=== PATIENT | female | born 1940 | race Caucasian/White ===

== ENCOUNTER 2023-02-06 14:06 | Observation (INO) ==
--- NOTE | 2023-02-06 15:17 | XRay Report ---
XR chest 1V portable CLINICAL HISTORY: Chest pain, nonspecific COMPARISON STUDY: Chest radiograph April 15, 2022. FINDINGS: Lung volumes are normal. Lungs are clear. There is no pneumothorax or pleural effusion. Car diac size is stable. Mediastinal contours are normal. There is no evidence for pulmonary edema. IMPRESSION: No acute cardiopulmonary findings. No change in appearance of the chest. ACT 112: Negative or not required by law. Electronically signed by: Elian Baer M.D. 02/06/2023 3:16 PM
[2023-02-06 15:28] LABS: Hematocrit (blood only) 40.6 % (37.0-47.0); Hemoglobin 13.5 g/dl (12.0-16.0); Mean Corpuscular Hemoglobin 30.7 pg (25.0-34.0); Mean Corpuscular Hgb Conc 33.3 g/dL (32.0-36.0); Mean Corpuscular Volume 92.3 fL (80.0-100.0); Mean Platelet Volume 9.1 fL (9.4-12.4); Platelet Count 231 K/uL (130-400); RDW Coefficient of Variation 14.1 % (11.5-14.5); RDW Standard Deviation 47.9 fL (36.4-46.3); White Blood Count 22.86 K/ul (4.8-10.8)
[2023-02-06] MEDS ORDERED: ONDANSETRON INJ 2 MG/ML 2 ML VIAL IV STA (15:37)
[2023-02-06 15:46] LABS: BUN Creatinine Ratio 18.3 (10-20); Calcium 8.9 mg/dl (8.6-10.3); Creatinine Clr Calc Pharmacy 64.6 ml/min; Est GFR (African American) 91.9 ml/min; Est GFR (Non-African American) 79.3 ml/min; Potassium 3.6 mmol/L (3.5-5.1)
[2023-02-06 15:53] LABS: Troponin I High Sensitivity 2.5 pg/ml (0-14)
--- NOTE | 2023-02-06 16:14 | Emergency Department Note ---
History of Present Illness General Chief complaint: Hypertension Time Seen by Provider: 02/06/23 14:28 History of Present Illness Provider complaint: Lightheaded high blood pressure Onset (ago): hour(s) (2.5) Location: head 82-year-old female with history of CLL presents emergency department for lightheadedness and high blood pressure. Patient states at noon today she was watching TV and she got up to eat lunch when she suddenly became very lightheaded and felt nauseous. She states she took her blood pressure and noticed it was elevated with a systolic blood pressure greater than 170. She reports a mild headache. No chest pain or difficulty breathing. No abdominal pain. No vomiting or diarrhea. Home Medications Medication Instructions Recorded Confirmed Type cranberry extract 500 mg capsule 500 mg PO BID 09/13/20 02/04/23 History (Cranberry Concentrate) multivitamin (Daily Multi-Vitamin 1 tab PO DAILY 09/13/20 02/04/23 History tablet) polyethylene glycol 3350 17 17 g PO DAILY 09/13/20 02/04/23 History gram/dose oral powder (Miralax) calcium carb,cit ER 600 mg-vit D3 2 tab PO DAILY 03/26/21 02/04/23 History 12.5 mcg (500 unit) tablet,ext.rel (Citracal-D3 Slow Release) green tea extract 500 mg capsule 750 mg PO QID 03/26/21 02/04/23 History oxyquinoline 0.025 %-sodium lauryl 1 ea vaginal PRN #113.4 grams 02/19/22 02/04/23 Rx sulfate 0.01 % vaginal gel (Trimo-Espinal Jelly) aspirin 81 mg capsule 81 mg PO DAILY 05/06/22 02/04/23 History rosuvastatin 5 mg tablet (Crestor) 5 mg PO DAILY #90 tabs 06/23/22 02/04/23 Rx conjugated estrogens 0.625 mg/gram 0.625 mg vaginal .COMPLEX #30 grams 07/10/22 02/04/23 Rx vaginal cream (Premarin) azelastine 137 mcg (0.1 %) nasal 2 spray intranasal BID PRN allergy 08/07/22 02/04/23 Rx spray aerosol symptoms #90 mL esomeprazole magnesium 20 mg 20 mg PO DAILY #90 caps 10/12/22 02/04/23 Rx capsule,delayed release (Nexium) levothyroxine 100 mcg tablet 100 mcg PO DAILY #90 tabs 11/18/22 02/04/23 Rx diclofenac sodium 1 % topical gel 2 g topical QID PRN pain #100 grams 01/14/23 02/04/23 Rx lisinopril 30 mg tablet 30 mg PO DAILY #90 tabs 01/22/23 02/04/23 Rx magnesium 200 mg tablet 200 mg PO DAILY 02/04/23 02/04/23 History pregabalin 50 mg capsule (Lyrica) 50 mg PO BID #60 caps 02/04/23 02/04/23 Rx diltiazem HCl 120 mg 120 mg PO DAILY #30 caps 02/05/23 Rx capsule,extended release 24 hr Allergies Allergy/AdvReac Type Severity Reaction Status Date / Time amlodipine AdvReac Intermediate swollen Verified 01/21/23 11:46 ankles doxepin AdvReac Intermediate Verified 01/21/23 11:46 nortriptyline AdvReac Intermediate Nausea and Verified 02/04/23 08:11 dizzy feeling Opioids-Methadone and Related AdvReac Intermediate Verified 01/21/23 11:46 cymbalta AdvReac Severe Uncoded 01/21/23 11:46 amlodipine AdvReac Mild edema Uncoded 01/21/23 11:46 gabapentin AdvReac Mild sedation Uncoded 01/21/23 11:46 Past Med/Surg History Medical History B12 deficiency Benign breast cyst in female Benign thyroid cyst Bilateral cataracts 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 Luis [facility] History of basal cell carcinoma (BCC) Hypothyroid Schwannoma Thyroid nodule Surgical History H/O abdominal hysterectomy H/O colonoscopy No further tests recommended H/O parathyroidectomy History of right hip replacement Family History Mother , age 79 Bipolar disorder Father , age 72 Hypertension Alcohol abuse Sister Hypertension Melanoma Grandfather (Paternal) Lung cancer Other Dementia Myocardial infarction Denies family history of Ovarian cancer Prostate cancer Diabetes Breast cancer Colorectal cancer Stroke Social History Smoking Status: Never smoker Second Hand Exposure: No; Do You Dip or Chew Tobacco: No; Hx Alcohol Use: No Hx Substance Use: No Preferred Language: Danish Communication Ability: Effective Visual Impairment: Limited Hearing Ability: Normal marital status: Current Living Situation: Spouse current occupational status: retired current occupation: retired [employer] RN, 2000 How many Children do You have: 2 Feels Safe at Home: Yes Childhood Exposure to Second-Hand Smoke: Yes Diet: regular caffeine: Yes (3-4 times a day) Dental Care, Regularly: Yes Physical Activity Frequency: 5-6 Times per Week Physical Activity Frequency Comment: walks Seatbelt Use: always Sunscreen Use: Yes Do you think of yourself as: straight/heterosexual Physical Exam Vital Signs Vital Signs - 24 hr 02/06/23 14:14 02/06/23 14:19 02/06/23 15:10 Temperature 36.4 C L Temperature Source Oral Pulse Rate 67 71 69 Pulse Rate [Apical] Pulse Rhythm Regular Respiratory Rate 20 17 Respiratory Effort / Characteristics Respiratory Depth Respiratory Pattern Blood Pressure 152/70 H Blood Pressure [Right Arm] Blood Pressure Mean 97 Blood Pressure Mean [Right Arm] Pulse Oximetry 98 100 Oxygen Delivery Method Room Air Room Air Oxygen Flow Rate Sepsis Recent Fever Within 48 Hours No Sepsis New/Unexplained Change in Mental Status N/A Sepsis Action Taken by Nursing No Action Required 02/06/23 15:11 02/06/23 16:16 02/06/23 16:16 Temperature Temperature Source Pulse Rate Pulse Rate [Apical] 65 70 Pulse Rhythm Respiratory Rate 17 18 Respiratory Effort / Characteristics Non-Labored Respiratory Depth Normal Respiratory Pattern Regular Blood Pressure Blood Pressure [Right Arm] 168/80 H Blood Pressure Mean Blood Pressure Mean [Right Arm] 109 Pulse Oximetry 86 L 98 Oxygen Delivery Method Room Air Room Air Nasal Cannula Oxygen Flow Rate 2 Sepsis Recent Fever Within 48 Hours Sepsis New/Unexplained Change in Mental Status Sepsis Action Taken by Nursing Physical Exam GENERAL: She is oriented to person, place, and time. She appears well-developed and well-nourished. HENT: Exam performed. -Head: Normocephalic and atraumatic. -Right Ear: External ear normal. No mastoid erythema -Left Ear: External ear normal. No mastoid erythema -Mouth/Throat: The oropharynx is clear and moist. No trismus in the jaw. No dental abscesses or uvula swelling. No oropharyngeal exudate or tonsillar abs cesses. EYES: Conjunctivae and EOM are normal. Pupils are equal, round, and reactive to light. Right eye exhibits no discharge. Left eye exhibits no discharge. No scleral icterus. NECK: Normal range of motion. Neck supple. No JVD present. No tracheal deviation and normal range of motion present. CV: Normal rate, regular rhythm, normal heart sounds and intact distal pulses. There is no peripheral edema. Palpable radial pulses bue. PULM/CHEST: Effort normal and breath sounds normal. No respiratory distress. No stridor. She has no wheezes. She has no rales. ABD: The abdomen is soft.There is no tenderness. There is no rebound, no guarding NEURO: She is alert and oriented to person, place, and time. She has normal strength. No cranial nerve deficit or sensory deficit. Coordination and gait n ormal. GCS eye subscore is 4. GCS verbal subscore is 5. GCS motor subscore is 6. Cerebellar tests wnl. SKIN: Skin is warm and dry. She is not diaphoretic. Course Course 1428: The patient was evaluated in room B6. A complete history and physical exam was performed Cardiac monitoring: An order was placed for continuous cardiac monitoring. The monitor shows a rate of 70 with sinus rhythm interpreted by ut 1620: Patient became hypoxic on room air and responded to supplemental oxygen via nasal cannula. And CTA of the chest also. 1720: Vital signs stable supplemental oxygen via nasal cannula. Labs are within normal limits. CT of the head within normal limits. CTA of the chest showed no pulmonary emboli but did show groundglass opacities with mosaic attenuation within the lungs which may reflect air trapping or infectious process. Discussed the case with pulmonology on-call Dr. Bingham who stated to obtain a BioFire swab and then to treat with antibiotics for community-acquired pneumonia. Patient be given Rocephin and azithromycin. [facility] hospitalist team Dr. Belle and Aida FUNEZ are aware for the admission. Administered Medications Discontinued Medications Ioversol (Optiray 320 500ml) 116 ml IV ONCE ONE Stop: 02/06/23 16:47 Last Admin: 02/06/23 16:47 Dose: 116 ml Documented By: RHIANNA Ondansetron HCl (Ondansetron Inj 2 Mg/Ml 2 Ml Vial) 4 mg IV NOW STA Stop: 02/06/23 15:38 Last Admin: 02/06/23 15:42 Dose: 4 mg Documented By: Medical Decision Making Laboratory Data Attestation: I reviewed the patient's lab results. 02/06/23 15:10 02/06/23 15:10 Lab Results 02/06/23 02/06/23 02/06/23 Range/Units 14:43 15:10 15:10 WBC 22.86 H (4.8-10.8) K/ul RBC 4.40 (4.20-5.40) M/uL Hgb 13.5 (12.0-16.0) g/dl Hct 40.6 (37.0-47.0) % MCV 92.3 (80.0-100.0) fL MCH 30.7 (25.0-34.0) pg MCHC 33.3 (32.0-36.0) g/dL RDW Std Deviation 47.9 H (36.4-46.3) fL RDW Coeff of Nancy 14.1 (11.5-14.5) % Plt Count 231 (130-400) K/uL MPV 9.1 L (9.4-12.4) fL Immature Gran % (Auto) 0.2 % Neut % (Auto) 29.8 % Lymph % (Auto) 65.9 % [place] % (Auto) 3.5 % Eos % (Auto) 0.3 % Baso % (Auto) 0.3 % Neut # (Auto) 6.82 H (1.40-6.50) K/uL Lymph # (Auto) 15.07 H (1.2-3.4) K/uL [place] # (Auto) 0.79 H (0.11-0.59) K/uL Eos # (Auto) 0.07 (0-0.50) K/uL Baso # (Auto) 0.06 (0-0.2) K/uL Immature Gran # (Auto) 0.05 (0.01-0.20) K/uL Sodium 137 (136-145) mmol/L Potassium 3.6 (3.5-5.1) mmol/L Chloride 102 (98-107) mmol/L Carbon Dioxide 27 (21-32) mmol/L Anion Gap 8 (3-11) BUN 13 (6-23) mg/dl Creatinine 0.71 (0.6-1.2) mg/dl Est Cr Clr Drug Dosing 64.6 ml/min Est GFR ( Amer) 91.9 ml/min Est GFR (Non-Af Amer) 79.3 ml/min BUN/Creatinine Ratio 18.3 (10-20) Glucose 105 H (70-99(Fasting)) mg/dl POC Glucose 106 H (70-99) mg/dl Calcium 8.9 (8.6-10.3) mg/dl Troponin I High Sens 2.5 (0-14) pg/ml SARS-CoV-2, RNA, NAAT (NEGATIVE) 02/06/23 Range/Units 16:25 WBC (4.8-10.8) K/ul RBC (4.20-5.40) M/uL Hgb (12.0-16.0) g/dl Hct (37.0-47.0) % MCV (80.0-100.0) fL MCH (25.0-34.0) pg MCHC (32.0-36.0) g/dL RDW Std Deviation (36.4-46.3) fL RDW Coeff of Nancy (11.5-14.5) % Plt Count (130-400) K/uL MPV (9.4-12.4) fL Immature Gran % (Auto) % Neut % (Auto) % Lymph % (Auto) % [place] % (Auto) % Eos % (Auto) % Baso % (Auto) % Neut # (Auto) (1.40-6.50) K/uL Lymph # (Auto) (1.2-3.4) K/uL [place] # (Auto) (0.11-0.59) K/uL Eos # (Auto) (0-0.50) K/uL Baso # (Auto) (0-0.2) K/uL Immature Gran # (Auto) (0.01-0.20) K/uL Sodium (136-145) mmol/L Potassium (3.5-5.1) mmol/L Chloride (98-107) mmol/L Carbon Dioxide (21-32) mmol/L Anion Gap (3-11) BUN (6-23) mg/dl Creatinine (0.6-1.2) mg/dl Est Cr Clr Drug Dosing ml/min Est GFR ( Amer) ml/min Est GFR (Non-Af Amer) ml/min BUN/Creatinine Ratio (10-20) Glucose (70-99(Fasting)) mg/dl POC Glucose (70-99) mg/dl Calcium (8.6-10.3) mg/dl Troponin I High Sens (0-14) pg/ml SARS-CoV-2, RNA, NAAT NEGATIVE (NEGATIVE) Imaging Data My Impression: Chest x-ray negative. Airway clear. No pneumothorax. No consolidation. No cardiomegaly or cephalization.. No free air under the diaphragm. No fractures of the skeletal structures. Radiologist's Impression: Chest X-Ray 02/06/23 14:41 XR chest 1V portable CLINICAL HISTORY: Chest pain, nonspecific COMPARISON STUDY: Chest radiograph April 15, 2022. FINDINGS: Lung volumes are normal. Lungs are clear. There is no pneumothorax or pleural effusion. Cardiac size is stable. Mediastinal contours are normal. There is no evidence for pulmonary edema. IMPRESSION: No acute cardiopulmonary findings. No change in appearance of the chest. ACT 112: Negative or not required by law. Electronically signed by: Elian Baer M.D. 02/06/2023 3:[address] 02/06/23 14:42 CT OF THE HEAD WITHOUT CONTRAST CLINICAL HISTORY: cui dizziness onset 1200 COMPARISON STUDY: Head CT and CTA of the head April 15, 2022. CT DOSE: 800.63 mGy.cm TECHNIQUE: Helical axial images of the head were obtained without IV contrast. Automated exposure control was utilized for the study. A dose lowering technique was utilized adhering to the principles of ALARA. FINDINGS: No acute intracranial hemorrhage, midline shift or mass effect is present. A 2.8 cm extra-axial right posterior parafalcine mass is noted. This is likely slightly increased in size since head CT of April 15, 2022. The ventricular system is unremarkable. The basal cisterns are patent. No extra- axial collections are present. There are no findings to suggest acute dural sinus thrombosis or acute territorial infarct. No significant calvarial abnormalities are present. Visualized portions of the sinuses and mastoid air cells are clear. IMPRESSION: 1. No acute intracranial findings. 2. 2.8 cm extra-axial right posterior parafalcine mass, likely slightly increased in size since prior head CT. This favors a meningioma. ACT 112: Negative or not required by law. Electronically signed by: Elian Baer M.D. 02/06/2023 4:30 PM Chest CTA 02/06/23 16:20 CT ANGIOGRAPHY OF THE CHEST, PULMONARY EMBOLUS PROTOCOL CLINICAL HISTORY: Shortness of breath. Evaluate for pulmonary embolus. COMPARISON STUDY: Chest radiographs April 15, 2022 and February 06, 2023 at 2:57 PM TECHNIQUE: Following IV administration of 116 mL of Optiray, helical axial images of the chest were obtained utilizing the pulmonary embolus protocol. Maximal intensity projections and sagittal and coronal reformats were viewed on an independent 3D workstation. IV contrast was administered without complicati on. Automated exposure control was utilized for the study. A dose lowering technique was utilized adhering to the principles of ALARA. CT DOSE: 479.49 mGy.cm FINDINGS: No pulmonary emboli are identified. There is no thoracic aortic dissection. Cardiomegaly is noted. There is no pericardial effusion. A small hiatal hernia is noted. The esophagus is moderately dilated. There is an air- fluid level within the esophagus. No pneumothorax or pleural effusion is noted. There are groundglass opacities with mosaic attenuation within the lungs. There is no thoracic lymphadenopathy. A lobulated water attenuation 2.6 and a right hepatic lobe lesion favors a cyst. IMPRESSION: 1. No pulmonary emboli identified. 2. Ground glass opacities with mosaic attenuation within the lungs. Findings may reflect air trapping. An infectious process could appear similar although is considered less likely. 3. Moderately dilated esophagus. Small hiatal hernia. ACT 112: Negative or not required by law. Electronically signed by: Elian Baer M.D. 02/06/2023 5:09 PM ECG Data Attestation: I personally reviewed and interpreted this ECG as follows: Rate (beats per minute): 69 Rhythm: + normal sinus ECG Intervals/blocks: + Normal QRS, + Normal MA and + Normal QT-c ECG ST segments: + Normal ST segments [facility] Narrative 1428: The patient was evaluated in room B6. A complete history and physical exam was performed Cardiac monitoring: An order was placed for continuous cardiac monitoring. The monitor shows a rate of 70 with sinus rhythm interpreted by ut 1620: Patient became hypoxic on room air and responded to supplemental oxygen via nasal cannula. And CTA of the chest also. 1720: Vital signs stable supplemental oxygen via nasal cannula. Labs are within normal limits. CT of the head within normal limits. CTA of the chest showed no pulmonary emboli but did show groundglass opacities with mosaic attenuation within the lungs which may reflect air trapping or infectious process. Discussed the case with pulmonology on-call Dr. Bingham who stated to obtain a BioFire swab and then to treat with antibiotics for community-acquired pneumonia. Patient be given Rocephin and azithromycin. [facility] hospitalist team Dr. Belle and Aida FUNEZ are aware for the admission. Impression & Plan Hypoxia, Pneumonia Discharge Plan Visit Data Chief Complaint: Hypertension ED Provider: Ramana Crooks Discharge Problem: Hypoxia, Pneumonia Patient Disposition: Admitted As Inpatient Forms Stand Alone Forms: My [facility] Prescriptions Prescriptions: No Action Trimo-Espinal Jelly 0.025-0.01 % gel 1 ea vaginal PRN Qty: 113.4 2RF rosuvastatin [Crestor] 5 mg tablet 5 mg PO DAILY Qty: 90 3RF Premarin 0.625 mg/gram cream 0.625 mg vaginal .COMPLEX Qty: 30 3RF Rx Instructions: Apply pea sized amount 1-2 times weekly. azelastine 137 mcg (0.1 %) aerosol,spray 2 spray intranasal BID PRN (Reason: allergy symptoms) Qty: 90 3RF Rx Instructions: administer into each nostril esomeprazole magnesium [Nexium] 20 mg capsule,delayed release(DR/EC) 20 mg PO DAILY Qty: 90 3RF levothyroxine 100 mcg tablet 100 mcg PO DAILY Qty: 90 3RF diclofenac sodium 1 % gel 2 g topical QID PRN (Reason: pain) Qty: 100 3RF lisinopril 30 mg tablet 30 mg PO DAILY Qty: 90 0RF diltiazem HCl 120 mg capsule,extended release 24hr 120 mg PO DAILY Qty: 30 2RF aspirin 81 mg capsule 81 mg PO DAILY polyethylene glycol 3350 [Miralax] 17 gram/dose powder 17 g PO DAILY multivitamin [Daily Multi-Vitamin] Tablet 1 tab PO DAILY cranberry extract [Cranberry Concentrate] 500 mg capsule 500 mg PO BID Rx Instructions: administer with meals calcium carb and citrate-vitD3 [Citracal-D3 Slow Release] 600 mg-12.5 mcg (500 unit) tablet extended release 2 tab PO DAILY green tea extract 500 mg capsule 750 mg PO QID magnesium 200 mg tablet 200 mg PO DAILY pregabalin [Lyrica] 50 mg capsule 50 mg PO BID Qty: 60 5RF Referrals Referrals: Med Hyatt DO [Primary Care Provider] -
[2023-02-06 16:21] LABS: Basophils # (auto) 0.06 K/uL (0-0.2); Basophils % (auto) 0.3 %; Eosinophils # (auto) 0.07 K/uL (0-0.50); Eosinophils % (auto) 0.3 %; Immature Granulocytes # (auto) 0.05 K/uL (0.01-0.20); Immature Granulocytes % (auto) 0.2 %; Lymphocytes # (auto) 15.07 K/uL (1.2-3.4); Lymphocytes % (auto) 65.9 %; Monocytes # (auto) 0.79 K/uL (0.11-0.59); Monocytes % (auto) 3.5 %; Neutrophils # (auto) 6.82 K/uL (1.40-6.50); Neutrophils % (auto) 29.8 %
--- NOTE | 2023-02-06 16:32 | CT Scan Report ---
CT OF THE HEAD WITHOUT CONTRAST CLINICAL HISTORY: cui dizziness onset 1200 COMPARISON STUDY: Head CT and CTA of the head April 15, 2022. CT DOSE: 800.63 mGy.cm TECHNIQUE: Helical axial images of the head were obtained without IV contrast. Automated exposure con trol was utilized for the study. A dose lowering technique was utilized adhering to the principles o f ALARA. FINDINGS: No acute intracranial hemorrhage, midline shift or mass effect is present. A 2.8 cm extra-a xial right posterior parafalcine mass is noted. This is likely slightly increased in size since head CT of April 15, 2022. The ventricular system is unremarkable. The basal cisterns are patent. No extr a-axial collections are present. There are no findings to suggest acute dural sinus thrombosis or acu te territorial infarct. No significant calvarial abnormalities are present. Visualized portions of th e sinuses and mastoid air cells are clear. IMPRESSION: 1. No acute intracranial findings. 2. 2.8 cm extra-axial right posterior parafalcine mass, likely slightly increased in size since prior head CT. This favors a meningioma. ACT 112: Negative or not required by law. Electronically signed by: Elian Baer M.D. 02/06/2023 4:30 PM
[2023-02-06] MEDS ORDERED: OPTIRAY 320 500ml IV ONE (16:46)
--- NOTE | 2023-02-06 17:11 | CT Scan Report ---
CT ANGIOGRAPHY OF THE CHEST, PULMONARY EMBOLUS PROTOCOL CLINICAL HISTORY: Shortness of breath. Evaluate for pulmonary embolus. COMPARISON STUDY: Chest radiographs April 15, 2022 and February 06, 2023 at 2:57 PM TECHNIQUE: Following IV administration of 116 mL of Optiray, helical axial images of the chest were o btained utilizing the pulmonary embolus protocol. Maximal intensity projections and sagittal and cor onal reformats were viewed on an independent 3D workstation. IV contrast was administered without co mplication. Automated exposure control was utilized for the study. A dose lowering technique was ut ilized adhering to the principles of ALARA. CT DOSE: 479.49 mGy.cm FINDINGS: No pulmonary emboli are identified. There is no thoracic aortic dissection. Cardiomegaly i s noted. There is no pericardial effusion. A small hiatal hernia is noted. The esophagus is moderatel y dilated. There is an air-fluid level within the esophagus. No pneumothorax or pleural effusion is n oted. There are groundglass opacities with mosaic attenuation within the lungs. There is no thoracic lymphadenopathy. A lobulated water attenuation 2.6 and a right hepatic lobe lesion favors a cyst. IMPRESSION: 1. No pulmonary emboli identified. 2. Ground glass opacities with mosaic attenuation within the lungs. Findings may reflect air trapping . An infectious process could appear similar although is considered less likely. 3. Moderately dilated esophagus. Small hiatal hernia. ACT 112: Negative or not required by law. Electronically signed by: Elian Baer M.D. 02/06/2023 5:09 PM
[2023-02-06] MEDS ORDERED: cefTRIAXone SODIUM 1,000 MG in DEXTROSE 5% AD-VAN 50 ML IV STA (17:15)
[2023-02-06] MEDS ORDERED: AZITHROMYCIN 250 MG TAB PO ONE (17:15)
--- NOTE | 2023-02-06 17:40 | History & Physical Report ---
Date of Service February 06, 2023 Assessment & Plan (1) Hypoxia: Plan: Acute/stable - moderate to high risk - Admit to med/tele - Regular diet - Opacities on CT not likely to represent PNA in absence of subjective symptoms and no other supporting signs (lack of fever/tachycardia/worsening leukocytosis) - Received dose of Zithromax and Rocephin in ED - Procal has been ordered/pending - For now, defer additional antibiotics - Respiratory biofire ordered/pending - symptoms suspicious more with for a viral syndrome - Maintain supplemental O2 with goal pulse ox >90%, wean off as able (2) Hypertensive urgency: Plan: Acute on chronic/unstable - moderate to high risk - BP has been poorly controlled at home - Resume Lisinopril 30mg daily + Diltiazem CD 120mg daily - Add Hydralazine 10mg IV q4h prn sbp>170 or dbp>100 - May need to consider secondary htn w/u if accelerated BPs persist (3) CLL (chronic lymphocytic leukemia): Plan: Chronic/stable - low risk - Monitored by CCP, Dr. Carreno - CBC reviewed, leukocytosis is chronic and at baseline, H&H stable, no left shift - Not on any definitive treatment at this time (4) GERD (gastroesophageal reflux disease): Plan: Chronic/stable - low risk - Continue PPI therapy Plan CMP reviewed, no electrolyte derangements or renal failure noted. DVT ppx has been ordered with Lovenox 40mg daily. AM labs have been ordered. Above plan has been d/w Dr. Etienne who has also seen and evaluated this patient and agrees with aforementioned. Further orders will be implemented as hospitalization warrants. History of Present Illness Chief Complaint: generalized malaise/elevated BP Primary Care Provider: Med Hyatt DO Padmini Rushing is an 82 yo F with a pmhx CLL, peripheral neuropathy, meningioma, GERD, hypothyroidism who presents to the ER today c/o elevated BP and generalized malaise over the last few days. Patient states that she has been dealing with uncontrolled blood pressure issues since around . She was previously being treated for her neuropathic pain with Doxepin and felt that it was causing her BP to be elevated and subsequently stopped taking it. She has since been switched to Lyrica which she started for the first time last night. Due to her intermittent elevated BP, her PCP increased her Lisinopril to 30mg daily and also started her on a calcium channel fidel taking her first dose last evening. Today, she was feeling fatigued and more sleepy than usual. She took her BP overnight and again this AM and it was controlled at 117 and 120 respectively. Around lunchtime, she got up to make herself lunch and felt nauseous, she took her BP and it was 180 systolic. She attempted to contact her PCP but was unable to connect with him. Subsequently, she called 911 and was transported to the ER for evaluation. Here, she was noted to be afebrile. She denies cough, congestion, fever, chest pain, or dyspnea. Her BP has been with a highest of 160s systolic. Her WBC count is chronically elevated d/t her CLL and is not beyond her baseline. A transient dip in her oxygen to 86% on room air was noted and she was placed on supplemental O2. CXR was negative. CTA chest was performed showing ground glass opacities with mosaic attenuation within the lungs likely d/t air trapping as opposed to an infectious process. Respiratory biofire has been ordered and is pending. She was treated with a dose of Zithromax and Rocephin and referred to the hospitalist for admission. Allergies Allergy/AdvReac Type Severity Reaction Status Date / Time amlodipine AdvReac Intermediate swollen Verified 02/06/23 17:37 ankles doxepin AdvReac Intermediate Unknown Verified 02/06/23 17:37 nortriptyline AdvReac Intermediate Nausea and Verified 02/04/23 08:11 dizzy feeling Opioids-Methadone and Related AdvReac Intermediate Unknown Verified 02/06/23 17:37 duloxetine [From Cymbalta] AdvReac Mild Unknown Verified 02/06/23 21:38 gabapentin AdvReac Mild SEDATION Verified 02/06/23 21:38 Home Medications Medication Instructions Recorded Confirmed Type cranberry extract 500 mg capsule 500 mg PO BID 09/13/20 02/06/23 History (Cranberry Concentrate) multivitamin (Daily Multi-Vitamin 1 tab PO DAILY 09/13/20 02/06/23 History tablet) polyethylene glycol 3350 17 17 g PO DAILY 09/13/20 02/06/23 History gram/dose oral powder (Miralax) calcium carb,cit ER 600 mg-vit D3 2 tab PO DAILY 03/26/21 02/06/23 History 12.5 mcg (500 unit) tablet,ext.rel (Citracal-D3 Slow Release) green tea extract 500 mg capsule 750 mg PO QID 03/26/21 02/06/23 History oxyquinoline 0.025 %-sodium lauryl 1 ea vaginal PRN #113.4 grams 02/19/22 02/06/23 Rx sulfate 0.01 % vaginal gel (Trimo-Espinal Jelly) aspirin 81 mg capsule 81 mg PO DAILY 05/06/22 02/06/23 History rosuvastatin 5 mg tablet (Crestor) 5 mg PO DAILY #90 tabs 06/23/22 02/06/23 Rx conjugated estrogens 0.625 mg/gram 0.625 mg vaginal .COMPLEX #30 grams 07/10/22 02/06/23 Rx vaginal cream (Premarin) azelastine 137 mcg (0.1 %) nasal 2 spray intranasal BID PRN allergy 08/07/22 02/06/23 Rx spray aerosol symptoms #90 mL esomeprazole magnesium 20 mg 20 mg PO DAILY #90 caps 10/12/22 02/06/23 Rx capsule,delayed release (Nexium) levothyroxine 100 mcg tablet 100 mcg PO DAILY #90 tabs 11/18/22 02/06/23 Rx diclofenac sodium 1 % topical gel 2 g topical QID PRN pain #100 grams 01/14/23 02/06/23 Rx lisinopril 30 mg tablet 30 mg PO DAILY #90 tabs 01/22/23 02/06/23 Rx magnesium 200 mg tablet 200 mg PO DAILY 02/04/23 02/06/23 History pregabalin 50 mg capsule (Lyrica) 50 mg PO BID #60 caps 02/04/23 02/06/23 Rx diltiazem HCl 120 mg 120 mg PO DAILY #30 caps 02/05/23 02/06/23 Rx capsule,extended release 24 hr erythromycin 5 mg/gram (0.5 %) eye 0.5 inch OPB HS 02/06/23 02/06/23 History ointment [id number] 3.5 1 drp OPR .TAPER DIRECTED 02/06/23 02/06/23 History mg/mL-10,000 unit/mL-0.1% eye drops Past Med/Surg History Medical History B12 deficiency Benign breast cyst in female Benign thyroid cyst Bilateral cataracts 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 [place] History of basal cell carcinoma (BCC) Hypothyroid Schwannoma Thyroid nodule Surgical History H/O abdominal hysterectomy H/O colonoscopy No further tests recommended H/O parathyroidectomy History of right hip replacement Family History Mother , age 79 Bipolar disorder Father , age 72 Hypertension Alcohol abuse Sister Hypertension Melanoma Grandfather (Paternal) Lung cancer Other Dementia Myocardial infarction Denies family history of Ovarian cancer Prostate cancer Diabetes Breast cancer Colorectal cancer Stroke Social History Smoking Status: Never smoker Second Hand Exposure: No; Do You Dip or Chew Tobacco: No; Hx Alcohol Use: No Hx Substance Use: No Preferred Language: Indonesian Communication Ability: Effective Visual Impairment: Limited Hearing Ability: Normal Nurse Midwife Required: No Beliefs That Will Affect Care: None marital status: Current Living Situation: Spouse current occupational status: retired current occupation: retired hospital RN, 2000 How many Children do You have: 2 Other Information That Helps Us Care for You: No Feels Safe at Home: Yes Safety Concerns: Feels Safe At This Time Childhood Exposure to Second-Hand Smoke: Yes Diet: regular caffeine: Yes (3-4 times a day) Dental Care, Regularly: Yes Physical Activity Frequency: 5-6 Times per Week Physical Activity Frequency Comment: walks Seatbelt Use: always Sunscreen Use: Yes Do you think of yourself as: straight/heterosexual Assistive Devices: Glasses and Other Assistive Devices Comment: stair lift Physical Exam Physical Exam: GENERAL: 82 yo well-developed, well-nourished elderly F. AAOx4. NAD. EYES: conjunctiva injection of R eye LUNGS: Clear to auscultation bilaterally w/o W/R/R. CARDIOVASCULAR: Regular rate and rhythm. ABDOMEN: Soft, non-tender and non-distended. BS normoactive x 4 quad. EXTREMITIES: No edema. Non-tender. Peripheral pulses +2/4. Results & Data Results & Data Vital Signs (Past 12 Hours) Vital Signs Temp Pulse Pulse Resp BP BP Pulse Ox 02/06/23 16:16 70 18 168/80 H 98 02/06/23 16:16 65 17 86 L 02/06/23 15:11 02/06/23 15:10 69 17 100 02/06/23 14:19 36.4 C L 71 20 152/70 H 98 02/06/23 14:14 67 O2 Del Method O2 Flow Rate 02/06/23 16:16 Nasal Cannula 2 02/06/23 16:16 Room Air 02/06/23 15:11 Room Air 02/06/23 15:10 Room Air 02/06/23 14:19 Room Air 02/06/23 14:14 Laboratory Results 02/06/23 15:10 02/06/23 15:10 Diagnostic Findings Chest X-Ray 02/06/23 14:41 XR chest 1V portable CLINICAL HISTORY: Chest pain, nonspecific COMPARISON STUDY: Chest radiograph April 15, 2022. FINDINGS: Lung volumes are normal. Lungs are clear. There is no pneumothorax or pleural effusion. Cardiac size is stable. Mediastinal contours are normal. There is no evidence for pulmonary edema. IMPRESSION: No acute cardiopulmonary findings. No change in appearance of the chest. ACT 112: Negative or not required by law. Electronically signed by: Elian Baer M.D. 02/06/2023 3:[address] 02/06/23 14:42 CT OF THE HEAD WITHOUT CONTRAST CLINICAL HISTORY: cui dizziness onset 1200 COMPARISON STUDY: Head CT and CTA of the head April 15, 2022. CT DOSE: 800.63 mGy.cm TECHNIQUE: Helical axial images of the head were obtained without IV contrast. Automated exposure control was utilized for the study. A dose lowering technique was utilized adhering to the principles of ALARA. FINDINGS: No acute intracranial hemorrhage, midline shift or mass effect is present. A 2.8 cm extra-axial right posterior parafalcine mass is noted. This is likely slightly increased in size since head CT of April 15, 2022. The ventricular system is unremarkable. The basal cisterns are patent. No extra- axial collections are present. There are no findings to suggest acute dural sin us thrombosis or acute territorial infarct. No significant calvarial abnormalities are present. Visualized portions of the sinuses and mastoid air cells are clear. IMPRESSION: 1. No acute intracranial findings. 2. 2.8 cm extra-axial right posterior parafalcine mass, likely slightly increase d in size since prior head CT. This favors a meningioma. ACT 112: Negative or not required by law. Electronically signed by: Elian Baer M.D. 02/06/2023 4:30 PM Chest CTA 02/06/23 16:20 CT ANGIOGRAPHY OF THE CHEST, PULMONARY EMBOLUS PROTOCOL CLINICAL HISTORY: Shortness of breath. Evaluate for pulmonary embolus. COMPARISON STUDY: Chest radiographs April 15, 2022 and February 06, 2023 at 2:57 PM TECHNIQUE: Following IV administration of 116 mL of Optiray, helical axial images of the chest were obtained utilizing the pulmonary embolus protocol. Max imal intensity projections and sagittal and coronal reformats were viewed on an independent 3D workstation. IV contrast was administered without complication. Automated exposure control was utilized for the study. A dose lowering technique was utilized adhering to the principles of ALARA. CT DOSE: 479.49 mGy.cm FINDINGS: No pulmonary emboli are identified. There is no thoracic aortic dis section. Cardiomegaly is noted. There is no pericardial effusion. A small hiatal hernia is noted. The esophagus is moderately dilated. There is an air-fluid level within the esophagus. No pneumothorax or pleural effusion is noted. There are groundglass opacities with mosaic attenuation within the lungs. There is no thoracic lymphadenopathy. A lobulated water attenuation 2.6 and a right hepatic lobe lesion favors a cyst. IMPRESSION: 1. No pulmonary emboli identified. 2. Ground glass opacities with mosaic attenuation within the lungs. Findings may reflect air trapping. An infectious process could appear similar although is considered less likely. 3. Moderately dilated esophagus. Small hiatal hernia. ACT 112: Negative or not required by law. Electronically signed by: Elian Baer M.D. 02/06/2023 5:09 PM Supervising Physician Co-Signing Physician Notes Patient seen and examined, chart reviewed, case discussed with Sarah Beth Bowman PA-C and I agree with the assessment and plan as above except as otherwise noted above. All labs and images reviewed Patient seen and examined, chart reviewed, case discussed with Sarah Beth Bowman PA-C and I agree with the assessment and plan as above except as otherwise noted. Labs and images reviewed Padmini Rushing is an 82-year-old female with a [facility] medical history of CLL presented to the ER with lightheadedness and hypertension. Home blood pressure was greater than 170, she had some lightheadedness and nausea. While in the ER she was briefly hypoxic to the 80s and put on 2 L nasal cannula with rise in O2 sat to 98%. Lungs with basilar connie scratcher ckles. NAD. RRR. CTA shows no pulmonary emboli, groundglass opacities likely air trapping but which could represent pneumonia. Lightly dilated esophagus with small hiatal hernia CTH: 2.8 cm extra-axial right posterior parafalcine mass, slightly increased, favors meningioma. No acute findings CXR: No acute findings, see CT Leukocytosis of 22 is at baseline for patient. High sensitive troponin is normal. Electrolytes are normal. Procalcitonin not drawn, ordered. Patient is clinically fatigued, hypoxic, and weaker than baseline. Will admit with symptomatic care, suspect she likely has viral pneumonia with bio fire pending. DDx does include early pneumonia based on CT; has received azith romycin x1 and Rocephin x1. Will defer additional antibiotics unless fever curve up trends/clinically worsens/Pro-Laureano is positive PG Care Time/CCT Total # of Minutes Spent Total Time Spent with Patient: Total time spent is greater than 50% in coordination of care (as documented) at patient's floor/unit and/or counseling patient: Coding Level of Care Code 32476 INT INP/OBS CARE 3/75MIN Diagnoses Hypoxia R09.02 Hypertensive urgency I16.0 CLL (chronic lymphocytic leukemia) C91.10 GERD (gastroesophageal reflux disease) K21.9
[2023-02-06 18:38] LABS: Adenovirus PCR Not Detected (NotDetected); Bordetella parapertussis PCR Not Detected (NotDetected); Bordetella pertussis PCR Not Detected (NotDetected); Chlamydia pneumoniae PCR Not Detected (NotDetected); Coronavirus 229E PCR Not Detected (NotDetected); Coronavirus CoV-2 (COVID19)PCR Not Detected (NotDetected); Coronavirus HKU1 PCR Not Detected (NotDetected); Coronavirus NL63 PCR Not Detected (NotDetected); Coronavirus OC43PCR Not Detected (NotDetected); Human Metapneumovirus PCR Not Detected (NotDetected); Influenza A PCR Not Detected (NotDetected); Influenza B PCR Not Detected (NotDetected); Mycoplasma pneumoniae PCR Not Detected (NotDetected); Parainfluenza Virus 1 PCR Not Detected (NotDetected); Parainfluenza Virus 2 PCR Not Detected (NotDetected); Parainfluenza Virus 3 PCR Not Detected (NotDetected); Parainfluenza Virus 4 PCR Not Detected (NotDetected); Respiratory Syncytial VirusPCR Not Detected (NotDetected); Rhinovirus/Enterovirus PCR Not Detected (NotDetected)
[2023-02-06] MEDS ORDERED: hydrALAZINE HCL 20 MG/ML VIAL IV PRN (21:28)
[2023-02-06] MEDS ORDERED: ACETAMINOPHEN 325 MG TAB PO PRN (21:28)
[2023-02-06] MEDS ORDERED: MAGNESIUM HYDROXIDE SUSP 30 ML UDC PO PRN (21:28)
[2023-02-06] MEDS ORDERED: ALUMINUM/MAGNESIUM SUSP 30 ML UDC PO PRN (21:28)
[2023-02-06] MEDS ORDERED: ONDANSETRON INJ 2 MG/ML 2 ML VIAL IV PRN (21:28)
[2023-02-06] MEDS: ENOXAPARIN INJ 40 MG/0.4 ML SYR SQ SCH (22:16)
[2023-02-06] MEDS: NEOMYCIN/POLYMYXIN/DEXAMETHA OP SOLN 5 ML BTL OPR SCH (22:17)
[2023-02-06] MEDS: ERYTHROMYCIN OP OINT 5 MG/GM 3.5 GM TUBE OPB SCH (22:17)
[2023-02-06] MEDS: PREGABALIN 50 MG CAP PO SCH (22:17)
[2023-02-07] MEDS: NEOMYCIN/POLYMYXIN/DEXAMETHA OP SOLN 5 ML BTL OPR SCH ×5 (04:04→20:57)
[2023-02-07] MEDS: LEVOTHYROXINE SODIUM 100 MCG TABLET PO SCH (05:30)
[2023-02-07 06:14] LABS: Hematocrit (blood only) 37.6 % (37.0-47.0); Hemoglobin 12.5 g/dl (12.0-16.0); Mean Corpuscular Hemoglobin 29.9 pg (25.0-34.0); Mean Corpuscular Hgb Conc 33.2 g/dL (32.0-36.0); Mean Platelet Volume 9.4 fL (9.4-12.4); Platelet Count 232 K/uL (130-400); RDW Coefficient of Variation 14.2 % (11.5-14.5); RDW Standard Deviation 46.5 fL (36.4-46.3); Red Blood Count 4.18 M/uL (4.20-5.40); White Blood Count 22.53 K/ul (4.8-10.8)
[2023-02-07 06:28] LABS: BUN Creatinine Ratio 16.2 (10-20); Calcium 8.4 mg/dl (8.6-10.3); Creatinine Clr Calc Pharmacy 68.3 ml/min; Est GFR (African American) 94.4 ml/min; Est GFR (Non-African American) 81.5 ml/min; Potassium 4.1 mmol/L (3.5-5.1)
[2023-02-07] MEDS ORDERED: Nursing to Pharmacy Communication SCH (06:30)
[2023-02-07 06:43] LABS: Basophils # (auto) 0.06 K/uL (0-0.2); Basophils % (auto) 0.3 %; Eosinophils # (auto) 0.05 K/uL (0-0.50); Eosinophils % (auto) 0.2 %; Immature Granulocytes # (auto) 0.06 K/uL (0.01-0.20); Immature Granulocytes % (auto) 0.3 %; Lymphocytes # (auto) 16.05 K/uL (1.2-3.4); Lymphocytes % (auto) 71.2 %; Monocytes # (auto) 0.73 K/uL (0.11-0.59); Monocytes % (auto) 3.2 %; Neutrophils # (auto) 5.58 K/uL (1.40-6.50); Neutrophils % (auto) 24.8 %
--- NOTE | 2023-02-07 07:33 | Electrocardiogram Report ---
Test Reason : Blood Pressure : / mmHG Vent. Rate : 069 BPM Atrial Rate : 069 BPM P-R Int : 130 ms QRS Dur : 082 ms QT Int : 428 ms P-R-T Axes : 030 035 067 degrees QTc Int : 458 ms Normal sinus rhythm Nonspecific ST abnormality Abnormal ECG When compared with ECG of 15-APR-2022 11:36, T wave inversion no longer evident in Anterior leads Confirmed by Brennen Das ([id number]) on 02/07/2023 7:32:47 AM Referred By: REFERRED SELF Confirmed By:Topher Das
[2023-02-07] MEDS: lisinopril 10 MG TAB PO SCH (08:00)
[2023-02-07] MEDS: PREGABALIN 50 MG CAP PO SCH ×2 (08:00→20:54)
[2023-02-07] MEDS: POLYETHYLENE (MIRALAX) 17 GM PACK PO PRN (08:00)
[2023-02-07] MEDS: PANTOprazole 40 MG TAB PO SCH (08:01)
[2023-02-07] MEDS: ROSUVASTATIN CALCIUM 5 MG TAB PO SCH (08:01)
[2023-02-07] MEDS: dilTIAZem HCL 120 MG CAPCR PO SCH (08:01)
[2023-02-07] MEDS: ASPIRIN 81 MG ECTAB PO SCH (08:01)
--- NOTE | 2023-02-07 14:21 | Discharge Summary ---
Date of Service February 07, 2023 Admission HPI Per Admitting Provider Padmini Rushing is an 82 yo F with a pmhx CLL, peripheral neuropathy, meningioma, GERD, hypothyroidism who presents to the ER today c/o elevated BP and generalized malaise over the last few days. Patient states that she has been dealing with uncontrolled blood pressure issues since around . She was previously being treated for her neuropathic pain with Doxepin and felt that it was causing her BP to be elevated and subsequently stopped taking it. She has since been switched to Lyrica which she started for the first time last night. Due to her intermittent elevated BP, her PCP increased her Lisinopril to 30mg daily and also started her on a calcium channel fidel taking her first dose last evening. Today, she was feeling fatigued and more sleepy than usual. She took her BP overnight and again this AM and it was controlled at 117 and 120 respectively. Around lunchtime, she got up to make herself lunch and felt nauseous, she took her BP and it was 180 systolic. She attempted to contact her PCP but was unable to connect with him. Subsequently, she called 911 and was transported to the ER for evaluation. Here, she was noted to be afebrile. She denies cough, congestion, fever, chest pain, or dyspnea. Her BP has been with a highest of 160s systolic. Her WBC count is chronically elevated d/t her CLL and is not beyond her baseline. A transient dip in her oxygen to 86% on room air was noted and she was placed on supplemental O2. CXR was negative. CTA chest was performed showing ground glass opacities with mosaic attenuation within the lungs likely d/t air trapping as opposed to an infectious process. Respiratory biofire has been ordered and is pending. She was treated with a dose of Zithromax and Rocephin and referred to the hospitalist for admission. Principal Diagnosis 1. Transient hypoxia 2. Labile BP Discharge Exam GENERAL: 82 yo well-developed, well-nourished elderly F. AAOx4. NAD. EYES: conjunctiva injection of R eye LUNGS: Clear to auscultation bilaterally w/o W/R/R. CARDIOVASCULAR: Regular rate and rhythm. ABDOMEN: Soft, non-tender and non-distended. BS normoactive x 4 quad. EXTREMITIES: No edema. Non-tender. Peripheral pulses +2/4. Discharge Data Allergies Allergy/AdvReac Type Severity Reaction Status Date / Time amlodipine AdvReac Intermediate swollen Verified 02/06/23 17:37 ankles doxepin AdvReac Intermediate Unknown Verified 02/06/23 17:37 nortriptyline AdvReac Intermediate Nausea and Verified 02/04/23 08:11 dizzy feeling Opioids-Methadone and Related AdvReac Intermediate Unknown Verified 02/06/23 17:37 duloxetine [From Cymbalta] AdvReac Mild Unknown Verified 02/06/23 21:38 gabapentin AdvReac Mild SEDATION Verified 02/06/23 21:38 Consultations 02/06/23 17:23 ED Decision to Admit Stat Ordered Studies Chest X-Ray 02/06/23 14:41 XR chest 1V portable CLINICAL HISTORY: Chest pain, nonspecific COMPARISON STUDY: Chest radiograph April 15, 2022. FINDINGS: Lung volumes are normal. Lungs are clear. There is no pneumothorax or pleural effusion. Cardiac size is stable. Mediastinal contours are normal. There is no evidence for pulmonary edema. IMPRESSION: No acute cardiopulmonary findings. No change in appearance of the chest. ACT 112: Negative or not required by law. Electronically signed by: Elian Baer M.D. 02/06/2023 3:[address] 02/06/23 14:42 CT OF THE HEAD WITHOUT CONTRAST CLINICAL HISTORY: cui dizziness onset 1200 COMPARISON STUDY: Head CT and CTA of the head April 15, 2022. CT DOSE: 800.63 mGy.cm TECHNIQUE: Helical axial images of the head were obtained without IV contrast. Automated exposure control was utilized for the study. A dose lowering technique was utilized adhering to the principles of ALARA. FINDINGS: No acute intracranial hemorrhage, midline shift or mass effect is present. A 2.8 cm extra-axial right posterior parafalcine mass is noted. This is likely slightly increased in size since head CT of April 15, 2022. The ventricular system is unremarkable. The basal cisterns are patent. No extra- axial collections are present. There are no findings to suggest acute dural sinus thrombosis or acute territorial infarct. No significant calvarial abnormalities are present. Visualized portions of the sinuses and mastoid air cells are clear. IMPRESSION: 1. No acute intracranial findings. 2. 2.8 cm extra-axial right posterior parafalcine mass, likely slightly increased in size since prior head CT. This favors a meningioma. ACT 112: Negative or not required by law. Electronically signed by: Elian Baer M.D. 02/06/2023 4:30 PM Chest CTA 02/06/23 16:20 CT ANGIOGRAPHY OF THE CHEST, PULMONARY EMBOLUS PROTOCOL CLINICAL HISTORY: Shortness of breath. Evaluate for pulmonary embolus. COMPARISON STUDY: Chest radiographs April 15, 2022 and February 06, 2023 at 2:57 PM TECHNIQUE: Following IV administration of 116 mL of Optiray, helical axial images of the chest were obtained utilizing the pulmonary embolus protocol. Maximal intensity projections and sagittal and coronal reformats were viewed on an independent 3D workstation. IV contrast was administered without complication. Automated exposure control was utilized for the study. A dose lowering technique was utilized adhering to the principles of ALARA. CT DOSE: 479.49 mGy.cm FINDINGS: No pulmonary emboli are identified. There is no thoracic aortic dissection. Cardiomegaly is noted. There is no pericardial effusion. A small hiatal hernia is noted. The esophagus is moderately dilated. There is an air- fluid level within the esophagus. No pneumothorax or pleural effusion is noted. There are groundglass opacities with mosaic attenuation within the lungs. There is no thoracic lymphadenopathy. A lobulated water attenuation 2.6 and a right hepatic lobe lesion favors a cyst. IMPRESSION: 1. No pulmonary emboli identified. 2. Ground glass opacities with mosaic attenuation within the lungs. Findings may reflect air trapping. An infectious process could appear similar although is considered less likely. 3. Moderately dilated esophagus. Small hiatal hernia. ACT 112: Negative or not required by law. Electronically signed by: Elian Baer M.D. 02/06/2023 5:09 PM 02/07/23 10:53 US duplex renal artery Routine Hospital Course (1) Hypoxia: Acute/stable - resolved - Admitted to med/tele - Regular diet - Opacities on CT not likely to represent PNA in absence of subjective symptoms and no other supporting signs (lack of fever/tachycardia/worsening leukocytosis) - Received dose of Zithromax and Rocephin in ED - Procal has been ordered/pending - For now, defer additional antibiotics - Respiratory biofire negative - symptoms suspicious more for a viral syndrome vs medication effect (malaise, lightheadedness) as she recently started Lyrica - Maintain supplemental O2 with goal pulse ox >90%, weaned to room air around 9pm yesterday evening and has not required any more O2 since (2) Hypertensive urgency: Acute on chronic/unstable - BP has been poorly controlled at home with intermittent high BP readings - Resume Lisinopril 30mg daily + Diltiazem CD 120mg daily - Added Hydralazine 10mg IV q4h prn sbp>170 or dbp>10, of which she has not needed - Obtained a renal artery duplex study to exclude NACHO which was normal (3) CLL (chronic lymphocytic leukemia): Chronic/stable - Monitored by CCP, Dr. Carreno - CBC reviewed, leukocytosis is chronic and at baseline, H&H stable, no left shift - Not on any definitive treatment at this time (4) GERD (gastroesophageal reflux disease): Chronic/stable - Continue PPI therapy Plan Patient is medically and hemodynamically stable for discharge home today. Advised PCP follow up and continued monitoring of BP at home and take readings with you to PCP follow up. May need to have Lisinopril dose reduced to 20mg janak ly but BP has been stable here in house. Plan has been d/w Dr. Santillan who is in agreement with aforementioned. Total Time Total Time Spent Total Time Spent (In Minutes): <30 minutes Discharge Plan Discharge Items Patient Disposition: Home - Self-Care Reason For Visit: WEAKENESS Discharge Diagnosis: generalized weakness uncontrolled BP Activity: Resume your previous activity Non-emergency contact: Primary Care Provider Call non-emergency contact if: you have any medication questions and your symptoms worsen Follow-up/Referrals: Med Hyatt, [Primary Care Provider] - Diet: Regular and Low Sodium (2gm) Addtl Attending Provider Instructions: You were hospitalized due to symptoms of dizziness, malaise, with reported uncontrolled bp readings at home and questionable pneumonia. You were not having symptoms supportive of pneumonia or any fevers, and your white blood cells although chronically elevated were not higher than your baseline therefore no further antibiotics were given. During your stay, your blood pressure has been well controlled without any significant elevations warranting further medications. A renal artery ultrasound was completed to exclude renal artery stenosis as a contributing factor to your sporadic blood pressure readings. You can resume all of your medications as prescribed prior to your hospitalization. Please contact your primary care provider to schedule a follow up appointment within 1 week of discharge or sooner for a blood pressure recheck. If you have any questions or concerns after you leave the hospital, feel free to call the nonemergency contact number on your discharge paperwork. In the event of a medical emergency, call 911. Pending Studies at Discharge: No Stand-Alone Forms: My [facility], Smoking Cessation Medications and DC Order Prescriptions: Continued Trimo-Espinal Jelly 0.025-0.01 % gel 1 ea vaginal PRN Qty: 113.4 2RF rosuvastatin [Crestor] 5 mg tablet 5 mg PO DAILY Qty: 90 3RF Premarin 0.625 mg/gram cream 0.625 mg vaginal .COMPLEX Qty: 30 3RF Rx Instructions: Apply pea sized amount 1-2 times weekly. azelastine 137 mcg (0.1 %) aerosol,spray 2 spray intranasal BID PRN (Reason: allergy symptoms) Qty: 90 3RF Rx Instructions: administer into each nostril esomeprazole magnesium [Nexium] 20 mg capsule,delayed release(DR/EC) 20 mg PO DAILY Qty: 90 3RF levothyroxine 100 mcg tablet 100 mcg PO DAILY Qty: 90 3RF diclofenac sodium 1 % gel 2 g topical QID PRN (Reason: pain) Qty: 100 3RF lisinopril 30 mg tablet 30 mg PO DAILY Qty: 90 0RF diltiazem HCl 120 mg capsule,extended release 24hr 120 mg PO DAILY Qty: 30 2RF aspirin 81 mg capsule 81 mg PO DAILY polyethylene glycol 3350 [Miralax] 17 gram/dose powder 17 g PO DAILY multivitamin [Daily Multi-Vitamin] Tablet 1 tab PO DAILY cranberry extract [Cranberry Concentrate] 500 mg capsule 500 mg PO BID Rx Instructions: administer with meals calcium carb and citrate-vitD3 [Citracal-D3 Slow Release] 600 mg-12.5 mcg (500 unit) tablet extended release 2 tab PO DAILY green tea extract 500 mg capsule 750 mg PO QID magnesium 200 mg tablet 200 mg PO DAILY pregabalin [Lyrica] 50 mg capsule 50 mg PO BID Qty: 60 5RF erythromycin 5 mg/gram (0.5 %) ointment 0.5 inch OPB HS Rx Instructions: Start 02/01/2023 neomycin-polymyxin B-dexameth 3.5mg/mL-10,000 unit/mL-0.1 % drops,suspension 1 drp [facility] .TAPER DIRECTED Rx Instructions: Filled 02/01/2023 Discharge Orders: Discharge Order (Routine); Ordered 02/08/23 Ordered By: Sarah Beth Bowman Admission Data Admit Date/Time: 02/06/23 18:18 Attending Provider: Roosevelt Santillan Admit Provider: Sheng Etienne Primary Care Provider: Med Hyatt Other Providers: Sheng Etienne Coding Level of Care Code 68606 IN/OBS DISCH 30 MIN/LESS Diagnoses Hypoxia R09.02 Hypertensive urgency I16.0 CLL (chronic lymphocytic leukemia) C91.10 GERD (gastroesophageal reflux disease) K21.9
--- NOTE | 2023-02-07 17:31 | Hospitalist Progress Note ---
Date of Service February 07, 2023 Assessment & Plan (1) Hypoxia: Plan: Acute/stable - resolved - Admitted to med/tele - Regular diet - Opacities on CT not likely to represent PNA in absence of subjective symptoms and no other supporting signs (lack of fever/tachycardia/worsening leukocytosis) - Received dose of Zithromax and Rocephin in ED - Procal has been ordered/pending - For now, defer additional antibiotics - Respiratory biofire negative - symptoms suspicious more for a viral syndrome vs medication effect (malaise, lightheadedness) as she recently started Lyrica - Maintain supplemental O2 with goal pulse ox >90%, weaned to room air around 9pm yesterday evening and has not required any more O2 since (2) Hypertensive urgency: Plan: Acute on chronic/unstable - BP has been poorly controlled at home with intermittent high BP readings - Resume Lisinopril 30mg daily + Diltiazem CD 120mg daily - Added Hydralazine 10mg IV q4h prn sbp>170 or dbp>10, of which she has not needed - Ordered a renal artery duplex study to exclude NACHO which has still not yet been done (3) CLL (chronic lymphocytic leukemia): Plan: Chronic/stable - Monitored by CCP, Dr. Carreno - CBC reviewed, leukocytosis is chronic and at baseline, H&H stable, no left shift - Not on any definitive treatment at this time (4) GERD (gastroesophageal reflux disease): Plan: Chronic/stable - Continue PPI therapy Plan Patient is medically and hemodynamically stable for dc but renal duplex scan has not yet been done and she would like to stay until this is completed to exclude that NACHO could be contributing to her labile hypertension. Will allow her to eat now and make her NPO after MN and scan will be done first thing in AM. Plan d/w Dr. Santillan. Pt and family updated. Admission and Anticipated Discharge Date Admission Date: February 06, 2023 Subjective Patient seen on rounds, no new complaints. Still c/o feeling a little dizzy but thinks it could be related to starting Lyrica. No other c/o, denies cp, p alpitations, dyspnea, n/v/d, f/c, headache, or gu symptoms. Physical Exam Physical Exam: GENERAL: 82 yo well-developed, well-nourished elderly F. AAOx4. NAD. EYES: conjunctiva injection of R eye LUNGS: Clear to auscultation bilaterally w/o W/R/R. CARDIOVASCULAR: Regular rate and rhythm. ABDOMEN: Soft, non-tender and non-distended. BS normoactive x 4 quad. EXTREMITIES: No edema. Non-tender. Peripheral pulses +2/4. Results & Data Results & Data Vital Signs (Past 12 Hours) Vital Signs Temp Pulse Pulse Pulse Resp BP Pulse Ox 02/07/23 16:00 58 L 02/07/23 15:34 36.8 C 65 16 111/64 96 02/07/23 11:46 36.6 C 60 18 123/68 95 02/07/23 08:00 53 L 02/07/23 07:49 36.9 C 60 16 135/74 95 O2 Del Method 02/07/23 16:00 02/07/23 15:34 Room Air 02/07/23 11:46 Room Air 02/07/23 08:00 02/07/23 07:49 Room Air Laboratory Results 02/07/23 05:39 02/07/23 05:39 PG Care Time/CCT Total # of Minutes Spent Total Time Spent with Patient: Total time spent is greater than 50% in coordination of care (as documented) at patient's floor/unit and/or counseling patient: Coding Level of Care Code 36890 SUB INP/OBS CARE 2/35MIN Diagnoses Hypoxia R09.02 Hypertensive urgency I16.0 CLL (chronic lymphocytic leukemia) C91.10 GERD (gastroesophageal reflux disease) K21.9
[2023-02-07] MEDS: ENOXAPARIN INJ 40 MG/0.4 ML SYR SQ SCH (20:54)
[2023-02-07] MEDS: ERYTHROMYCIN OP OINT 5 MG/GM 3.5 GM TUBE OPB SCH (20:57)
[2023-02-08] MEDS: LEVOTHYROXINE SODIUM 100 MCG TABLET PO SCH (05:45)
--- NOTE | 2023-02-08 08:15 | Ultrasound Report ---
US duplex renal artery CLINICAL HISTORY: uncontrolled hypertension TECHNIQUE: Real-time grayscale and color and spectral Doppler ultrasound imaging of the kidneys was p erformed. Comparison: None available at the time of this dictation. FINDINGS: Right kidney measures 10.6 cm. Left kidney measures 11.9 cm. RIGHT: Normal echogenicity with preserved corticomedullary differentiation. Normal cortical thickness. No hy dronephrosis. No convincing evidence of calculus or mass. Spectral analysis: Intrarenal resistive indices measure up to 0.69. Waveforms are normal in appearance.. Renal artery ve locities and waveforms are normal. Renal vein patent. LEFT: Normal echogenicity with preserved corticomedullary differentiation. Normal cortical thickness. No hy dronephrosis. No convincing evidence of calculus or mass. Spectral analysis: Intrarenal resistive indices to measure up to 0.71. Waveforms are normal in appearance. Renal artery velocities and waveforms are normal. Renal vein patent. Abdominal aorta: Patent. Peak systolic velocity 130.7 cm/s. Reference ranges: Normal main renal artery peak systolic velocity less than 180 cm/s. Ratio of renal artery PSV to aort ic PSV less than 3.5 equates to normal or less than 60% stenosis. Only one of the two criteria listed needs to be met for diagnosis. IMPRESSION: No evidence of renal artery stenosis. ACT 112: Negative or not required by law. Electronically signed by: Kvng Randall M.D. 02/08/2023 8:13 AM
[2023-02-08] MEDS: NEOMYCIN/POLYMYXIN/DEXAMETHA OP SOLN 5 ML BTL OPR SCH (08:19)
[2023-02-08] MEDS: lisinopril 10 MG TAB PO SCH (08:20)
[2023-02-08] MEDS: dilTIAZem HCL 120 MG CAPCR PO SCH (08:20)
[2023-02-08] MEDS: PANTOprazole 40 MG TAB PO SCH (08:20)
[2023-02-08] MEDS: ROSUVASTATIN CALCIUM 5 MG TAB PO SCH (08:20)
[2023-02-08] MEDS: ASPIRIN 81 MG ECTAB PO SCH (08:20)
[2023-02-08] MEDS: PREGABALIN 50 MG CAP PO SCH (08:22)
[2023-02-08] MEDS: POLYETHYLENE (MIRALAX) 17 GM PACK PO PRN (08:22)
== END 2023-02-08 13:15 | disposition home or self-care (01) ==
LOC: 2N 14:06 → ED 14:06 → SUATTDRO 18:18 → 2N 19:24

== ENCOUNTER 2023-03-23 20:40 | Inpatient (IN) ==
[2023-03-23] MEDS ORDERED: ACETAMINOPHEN 1,000 MG/100 ML VIAL IV STA (21:44)
--- NOTE | 2023-03-23 21:50 | Emergency Department Note ---
History of Present Illness General Chief complaint: Back Injury/Pain Stated complaint: REF BY , SEVERE BACK PAIN Time Seen by Provider: 03/23/23 21:26 History of Present Illness Maximum Pain Intensity: 10 This 83-year-old female presents to the ER complaining of left upper back pain for the past day after starting a new blood pressure medication. Patient denies chest pain, dyspnea, fever, chills, rash, flulike illness, numbness, tingling. No history of PEs. No injury to the area. Patient states she is quite sensitive to medications and is concerned that she might be having a side effect to it. Home Medications Medication Instructions Recorded Confirmed Type cranberry extract 500 mg capsule 500 mg PO BID 09/13/20 03/18/23 History (Cranberry Concentrate) multivitamin (Daily Multi-Vitamin 1 tab PO DAILY 09/13/20 03/18/23 History tablet) polyethylene glycol 3350 17 17 g PO DAILY 09/13/20 03/18/23 History gram/dose oral powder (Miralax) calcium carb,cit ER 600 mg-vit D3 2 tab PO DAILY 03/26/21 03/18/23 History 12.5 mcg (500 unit) tablet,ext.rel (Citracal-D3 Slow Release) green tea extract 500 mg capsule 750 mg PO QID 03/26/21 03/18/23 History aspirin 81 mg capsule 81 mg PO DAILY 05/06/22 03/18/23 History rosuvastatin 5 mg tablet (Crestor) 5 mg PO DAILY #90 tabs 06/23/22 03/18/23 Rx conjugated estrogens 0.625 mg/gram 0.625 mg vaginal .COMPLEX #30 grams 07/10/22 03/18/23 Rx vaginal cream (Premarin) azelastine 137 mcg (0.1 %) nasal 2 spray intranasal BID PRN allergy 08/07/22 03/18/23 Rx spray aerosol symptoms #90 mL diclofenac sodium 1 % topical gel 2 g topical QID PRN pain #100 grams 01/14/23 03/18/23 Rx magnesium 200 mg tablet 200 mg PO DAILY 02/04/23 03/18/23 History eylftpme-flmzbsrdi-lubmbffl 3.5 1 drp OPR .TAPER DIRECTED 02/06/23 03/18/23 History mg/mL-10,000 unit/mL-0.1% eye drops erythromycin 5 mg/gram (0.5 %) eye 0.5 inch OPB HS 02/09/23 03/18/23 History ointment oxyquinoline 0.025 %-sodium lauryl 1 ea vaginal PRN #113.4 grams 02/09/23 03/18/23 Rx sulfate 0.01 % vaginal gel (Trimo-Espinal Jelly) esomeprazole magnesium 40 mg 40 mg PO DAILY #90 caps 02/10/23 03/18/23 Rx capsule,delayed release levothyroxine 100 mcg tablet 100 mcg PO DAILY #90 tabs 03/03/23 03/18/23 Rx trazodone 50 mg tablet 25 mg PO DAILY #15 tabs 03/10/23 03/18/23 Rx ondansetron 4 mg disintegrating 4 mg PO Q8H PRN nausea and 03/16/23 03/18/23 Rx tablet vomiting #30 tabs candesartan 32 mg tablet 32 mg PO DAILY #30 tabs 03/19/23 Rx Allergies Allergy/AdvReac Type Severity Reaction Status Date / Time amlodipine AdvReac Intermediate swollen Verified 03/18/23 10:31 ankles doxepin AdvReac Intermediate Unknown Verified 03/18/23 10:31 nortriptyline AdvReac Intermediate Nausea and Verified 03/18/23 10:31 dizzy feeling Opioids-Methadone and Related AdvReac Intermediate Unknown Verified 03/18/23 10:31 duloxetine [From Cymbalta] AdvReac Mild Unknown Verified 03/18/23 10:31 gabapentin AdvReac Mild SEDATION Verified 03/18/23 10:31 Past Med/Surg History Medical History B12 deficiency Benign breast cyst in female Benign thyroid cyst Bilateral cataracts 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 Luis [facility] [place] History of basal cell carcinoma (BCC) Hypothyroid Schwannoma Thyroid nodule Surgical History H/O abdominal hysterectomy H/O colonoscopy No further tests recommended H/O parathyroidectomy History of right hip replacement Family History Mother , age 79 Bipolar disorder Father , age 72 Hypertension Alcohol abuse Sister Hypertension Melanoma Grandfather (Paternal) Lung cancer Other Dementia Myocardial infarction Denies family history of Ovarian cancer Prostate cancer Diabetes Breast cancer Colorectal cancer Stroke Social History Smoking Status: Never smoker Second Hand Exposure: No; Do You Dip or Chew Tobacco: No; Hx Alcohol Use: No Hx Substance Use: No Preferred Language: Mongolian Communication Ability: Effective Visual Impairment: Limited Hearing Ability: Normal Manager Of Supply [employer] Required: No Beliefs That Will Affect Care: None marital status: Current Living Situation: Spouse current occupational status: retired current occupation: retired hospital RN, 2000 How many Children do You have: 2 Feels Safe at Home: Yes Childhood Exposure to Second-Hand Smoke: Yes Diet: regular caffeine: Yes (3-4 times a day) Dental Care, Regularly: Yes Physical Activity Frequency: 5-6 Times per Week Physical Activity Frequency Comment: walks Seatbelt Use: always Sunscreen Use: Yes Do you think of yourself as: straight/heterosexual Assistive Devices: None Review of Systems A total of 10 systems reviewed and were otherwise negative Physical Exam Vital Signs Vital Signs - 24 hr 03/23/23 20:43 03/23/23 21:10 03/23/23 21:09 Temperature 36.7 C Temperature Source Temporal Artery Scan Pulse Rate 78 77 Pulse Rate [Apical] 80 Respiratory Rate 17 16 Blood Pressure 188/83 H Blood Pressure [Left Arm] 171/86 H Blood Pressure Mean 118 Blood Pressure Mean [Left Arm] 114 Pulse Oximetry 97 95 Oxygen Delivery Method Room Air Room Air Sepsis Recent Fever Within 48 Hours No Sepsis New/Unexplained Change in Mental Status No Sepsis Action Taken by Nursing No Action Required 03/23/23 21:49 03/24/23 00:00 Temperature Temperature Source Pulse Rate 71 Pulse Rate [Apical] 72 Respiratory Rate 16 16 Blood Pressure Blood Pressure [Left Arm] 184/81 H Blood Pressure Mean Blood Pressure Mean [Left Arm] 115 Pulse Oximetry 97 97 Oxygen Delivery Method Room Air Room Air Sepsis Recent Fever Within 48 Hours Sepsis New/Unexplained Change in Mental Status Sepsis Action Taken by Nursing VITALS: Vitals are noted on the nurse's note and reviewed by myself. Vital signs stable. GENERAL: pleasant female, in no acute distress, nondiaphoretic, well-developed well-nourished. SKIN: The skin was without rashes, erythema, edema, or bruising. There is no tenting of the skin. Capillary reflex less than 2 seconds. HEAD: Normocephalic atraumatic. EARS: External auditory canals clear, EYES: Pupils equal round and reactive to light and accommodation. Conjunctivae without injection, sclerae without icterus. Extraocular movements intact. NOSE: Patent, turbinates without inflammation or discharge. MOUTH: Mucous membranes moist. Pharynx without erythema or exudate. Uvula mid line. Airway patent. Tongue does not deviate. NECK: Supple without nuchal rigidity. No lymphadenopathy. No thyromegaly. Cervical spine is nontender. No JVD. HEART: Regular rate and rhythm LUNGS: Clear to auscultation bilaterally without wheezes, rales or rhonchi. No retractions or accessory muscle use. ABDOMEN: Positive bowel sounds x 4. Normal tympanic percussion. Soft, nontender, without masses or organomegaly. Moreira sign negative. No guarding or rebound tenderness. No CVA tenderness MUSCULOSKELETAL: No muscle atrophy, erythema, or edema noted. NEURO: Patient was alert and oriented to person place and time. Normal sensation to light and sharp touch. No focal neurological deficits. Course Administered Medications Discontinued Medications Acetaminophen (Ofirmev) 1,000 mg in 100 mls @ 400 mls/hr IV NOW STA Stop: 03/23/23 21:58 Last Infusion: 03/23/23 22:10 Dose: 0 mls/hr Documented By: Admin: 03/23/23 21:53 Dose: 400 mls/hr Documented By: RK Ioversol (Ioversol 350 Mg 125ml Prefilled Syringe) 125 ml IV ONCE ONE Stop: 03/23/23 22:45 Last Admin: 03/23/23 22:45 Dose: 119 ml Documented By: SOPHIE Ketorolac Tromethamine (Ketorolac Tromethamine 15 Mg/Ml Vial) 10 mg IV NOW STA Stop: 03/23/23 23:22 Last Admin: 03/23/23 23:31 Dose: 10 mg Documented By: RK Lidocaine (Lidocaine 5% 1 Patch) 1 patch TD NOW STA Stop: 03/24/23 00:05 Last Admin: 03/24/23 00:19 Dose: 1 patch Documented By: RK Ondansetron HCl (Ondansetron Inj 2 Mg/Ml 2 Ml Vial) 4 mg IV NOW STA Stop: 03/23/23 22:53 Last Admin: 03/23/23 22:55 Dose: 4 mg Documented By: RK Medical Decision Making Medical Records Attestation: I reviewed the patient's medical records. Home Medications Current Medication List: was personally reviewed by me Laboratory Data Attestation: I reviewed the patient's lab results. 03/23/23 21:05 03/23/23 21:05 Lab Results 03/23/23 03/23/23 03/23/23 Range/Units 21:05 21:05 21:05 WBC 21.91 H (4.8-10.8) K/ul RBC 4.22 (4.20-5.40) M/uL Hgb 13.1 (12.0-16.0) g/dl Hct 37.9 (37.0-47.0) % MCV 89.8 (80.0-100.0) fL MCH 31.0 (25.0-34.0) pg MCHC 34.6 (32.0-36.0) g/dL RDW Std Deviation 43.9 (36.4-46.3) fL RDW Coeff of Nancy 13.3 (11.5-14.5) % Plt Count 258 (130-400) K/uL MPV 9.3 L (9.4-12.4) fL Immature Gran % (Auto) 0.2 % Neut % (Auto) 26.7 % Lymph % (Auto) 68.6 % Brooks % (Auto) 3.7 % Eos % (Auto) 0.5 % Baso % (Auto) 0.3 % Neut # (Auto) 5.83 (1.40-6.50) K/uL Lymph # (Auto) 15.03 H (1.2-3.4) K/uL Brooks # (Auto) 0.81 H (0.11-0.59) K/uL Eos # (Auto) 0.12 (0-0.50) K/uL Baso # (Auto) 0.07 (0-0.2) K/uL Immature Gran # (Auto) 0.05 (0.01-0.20) K/uL Smudge Cells Present Sodium 129 L (136-145) mmol/L Potassium 4.0 (3.5-5.1) mmol/L Chloride 95 L (98-107) mmol/L Carbon Dioxide 26 (21-32) mmol/L Anion Gap 8 (3-11) BUN 16 (6-23) mg/dl Creatinine 0.77 (0.6-1.2) mg/dl Est Cr Clr Drug Dosing Not Reportable Est GFR ( Amer) 82.8 ml/min Est GFR (Non-Af Amer) 71.4 ml/min BUN/Creatinine Ratio 20.8 H (10-20) Glucose 109 H (70-99(Fasting)) mg/dl Osmolality (280-300) mOsm/kg Calcium 8.9 (8.6-10.3) mg/dl Magnesium 2.2 (1.7-2.4) mg/dl Total Bilirubin 0.3 (0.2-1.0) mg/dl AST 22 (13-39) U/L ALT 29 (7-52) U/L Alkaline Phosphatase 57 (34-104) U/L Total Creatine Kinase 44 (26-192) U/L Troponin I High Sens 21.1 H (0-14) pg/ml Total Protein 6.7 (6.0-8.3) gm/dl Albumin 4.4 (3.4-5.0) gm/dl Globulin 2.3 L (2.5-4.0) gm/dl Albumin/Globulin Ratio 1.9 (0.9-2) Lipase 60 (11-82) U/L TSH 1.285 (0.300-4.500) uIu/ml 03/23/23 Range/Units 23:06 WBC (4.8-10.8) K/ul RBC (4.20-5.40) M/uL Hgb (12.0-16.0) g/dl Hct (37.0-47.0) % MCV (80.0-100.0) fL MCH (25.0-34.0) pg MCHC (32.0-36.0) g/dL RDW Std Deviation (36.4-46.3) fL RDW Coeff of Nancy (11.5-14.5) % Plt Count (130-400) K/uL MPV (9.4-12.4) fL Immature Gran % (Auto) % Neut % (Auto) % Lymph % (Auto) % Brooks % (Auto) % Eos % (Auto) % Baso % (Auto) % Neut # (Auto) (1.40-6.50) K/uL Lymph # (Auto) (1.2-3.4) K/uL Brooks # (Auto) (0.11-0.59) K/uL Eos # (Auto) (0-0.50) K/uL Baso # (Auto) (0-0.2) K/uL Immature Gran # (Auto) (0.01-0.20) K/uL Smudge Cells Sodium (136-145) mmol/L Potassium (3.5-5.1) mmol/L Chloride (98-107) mmol/L Carbon Dioxide (21-32) mmol/L Anion Gap (3-11) BUN (6-23) mg/dl Creatinine (0.6-1.2) mg/dl Est Cr Clr Drug Dosing Est GFR ( Amer) ml/min Est GFR (Non-Af Amer) ml/min BUN/Creatinine Ratio (10-20) Glucose (70-99(Fasting)) mg/dl Osmolality 270 L (280-300) mOsm/kg Calcium (8.6-10.3) mg/dl Magnesium (1.7-2.4) mg/dl Total Bilirubin (0.2-1.0) mg/dl AST (13-39) U/L ALT (7-52) U/L Alkaline Phosphatase (34-104) U/L Total Creatine Kinase (26-192) U/L Troponin I High Sens (0-14) pg/ml Total Protein (6.0-8.3) gm/dl Albumin (3.4-5.0) gm/dl Globulin (2.5-4.0) gm/dl Albumin/Globulin Ratio (0.9-2) Lipase (11-82) U/L TSH (0.300-4.500) uIu/ml Imaging Data Attestation: I personally reviewed and interpreted this imaging study as follows: Radiologist's Impression: Chest CTA 03/23/23 21:44 Exam(s): CTA CHEST IV Amt: 119 ML OPTIRAY 350 EXAM: CT Angiography Chest With Intravenous Contrast CLINICAL HISTORY: Reason for exam: Chest Pain, eval for PE. TECHNIQUE: Axial computed tomographic angiography images of the chest with intravenous contrast. CTDI is 31.95 mGy and DLP is 674.34 mGy-cm. Automated exposure control was utilized for the study. A dose lowering technique was utilized adhering to the principles of ALARA. MIP reconstructed images were created and reviewed. COMPARISON: No relevant prior studies available. FINDINGS: Pulmonary arteries: Unremarkable. No acute pulmonary embolism. Aorta: Atherosclerotic changes of the aorta. No thoracic aortic aneurysm. Lungs: Unremarkable. No mass. No consolidation. Pleural space: Unremarkable. No focal consolidation, pleural effusion, or pneumothorax. Heart: Cardiomegaly. No significant pericardial effusion. No evidence of RV dysfunction. Mediastinum: Small hiatal hernia. Bones/joints: Degenerative changes of the spine. No acute fracture. No dislocation. Soft tissues: Unremarkable. Lymph nodes: Unremarkable. No enlarged lymph nodes. Liver: Hepatic cystic lesions, too small to characterize. IMPRESSION: 1. No acute pulmonary embolism. 2. No focal consolidation, pleural effusion, or pneumothorax. Electronically signed by: Sav Corona MD 03/23/23 23:[address] [facility] Narrative Prior records/ancillary studies reviewed. Triage Nursing notes reviewed. Additional history obtained from family. The patient's history was concerning for left upper pain. Differential diagnosis: Etiologies such as shingles, side effect of medication, cardiac ischemia, aortic dissection, pulmonary embolism, pneumonia, pneumothorax, musculoskeletal, infections, pericarditis, myocarditis, esophageal rupture, gastrointestinal, as well as others were entertained. Physical examination: As above. ER treatment provided: An order was placed for continuous cardiac monitoring. The monitor shows a rate of 60-100 with a sinus rhythm per my interpretation. Tylenol IV was ordered Patient was still having pain and Toradol IV was ordered On reassessment the patient felt better. Diagnostic interpretation by me: #1 The electrocardiogram was ordered for upper back pain EKG: Normal sinus, minimal ST depression in the lateral leads, rate of 77. Impression normal sinus rhythm right axis with normal depression in lateral leads independent interpreted by myself I think arrhythmia is unlikely. EKG shows normal sinus rhythm with no interval abnormalities such as QT prolongation or WPW. There are no findings to suggest Brugada syndrome. Cardiac monitoring in the emergency department reveals no tachycardic or bradycardic dysrhythmia. Hypertrophic cardiomyopathy was considered but there are no clear historical elements pointing toward this. EKG is not suggestive. The QRS voltage is not extremely large and there are no suggestive Q waves. EKG #2 ordered for upper back pain EKG: Normal sinus, minimal ST depression in the lateral leads, rate of 77. Impression normal sinus rhythm right axis with normal depression in lateral leads independent interpreted by myself I think arrhythmia is unlikely. EKG shows normal sinus rhythm with no interval abnormalities such as QT prolongation or WPW. There are no findings to suggest B rugada syndrome. Cardiac monitoring in the emergency department reveals no tachycardic or bradycardic dysrhythmia. Hypertrophic cardiomyopathy was considered but there are no clear historical elements pointing toward this. EKG is not suggestive. The QRS voltage is not extremely large and there are no suggestive Q waves. The labs Independently Interpreted by myself revealed chronic leukocytosis as patient has CLL unchanged Slightly elevated troponin and repeat was ordered Imaging studies: Chest x-ray with no acute consolidation, pneumothorax or free air per my independent interpretation CTA of the chest negative for PE per my independent interpretation. Report was reviewed as above that was read by radiology HEART SCORE: Hx: high/mod/low suspicion: 0 ECG: ST depression/nonspecific changes/normal: 1 Age: Greater than 65/45-64/less than 45: 2 Risk factors: (Hypertension, hyperlipidemia, diabetes, coronary disease, tobacco use, cocaine use): 2 Troponin: Greater than 2 times normal limits/1-2 times normal limits/normal: 0 Total: 5 Consultation: A consultation was placed with the hospitalist. The case was discussed and diagnostics were reviewed. The patient was evaluated in the ER for further treatment. Exam and history seem consistent with upper back pain with an elevated troponin and an abnormal EKG. CTA was negative for PE. Labs and diagnostics are in for interpreted myself. Repeat EKG showed no evolving STEMI. Medicine is consulted and the case discussed. Patient be admitted to the medical team. By the evaluation outlined above emergent etiologies such as aortic dissection, pulmonary embolism, pneumonia, pneumothorax, infections, pericarditis, myocard itis, gastrointestinal, as well as others were deemed relatively unlikely. The pt informed about the findings as listed above. All questions were answered and pleased with the treatment. The chart was completed utilizing [email or web address] voice recognition software. Grammatical errors, random word insertions, pronoun errors, and incomplete sentences are an occassional consequence of this system due to software limitations, ambient noise, and hardware issues. Any formal questions or celina rns about the content, text, or information contained within the body of this dictation should be directly addressed to the physician dairy and food laboratory assistant for clarification. Impression & Plan Acute upper back pain, Elevated troponin, Acute hyponatremia Discharge Plan Visit Data Chief Complaint: Back Injury/Pain Stated Complaint: REF BY DR, SEVERE BACK PAIN ED Provider: Ramana Crooks ED Midlevel Provider: Cary Lieberman Discharge Problem: Acute upper back pain, Elevated troponin, Acute hyponatremia Patient Disposition: Admitted As Inpatient Condition: Good Discharge Instructions Interventions: ED Discharge Assessment Last Done: 03/24/23 00:29 Forms Stand Alone Forms: My [facility] [email or web address] Prescriptions Prescriptions: No Action rosuvastatin [Crestor] 5 mg tablet 5 mg PO DAILY Qty: 90 3RF Premarin 0.625 mg/gram cream 0.625 mg vaginal .COMPLEX Qty: 30 3RF Rx Instructions: Apply pea sized amount 1-2 times weekly. azelastine 137 mcg (0.1 %) aerosol,spray 2 spray intranasal BID PRN (Reason: allergy symptoms) Qty: 90 3RF Rx Instructions: administer into each nostril diclofenac sodium 1 % gel 2 g topical QID PRN (Reason: pain) Qty: 100 3RF erythromycin 5 mg/gram (0.5 %) ointment 0.5 inch OPB HS Rx Instructions: Start 02/01/2023- pt states for 1 month for eye infection Trimo-Espinal Jelly 0.025-0.01 % gel 1 ea vaginal PRN Qty: 113.4 2RF Rx Instructions: on days she does not take Premarin levothyroxine 100 mcg tablet 100 mcg PO DAILY Qty: 90 3RF trazodone 50 mg tablet 25 mg PO DAILY Qty: 15 2RF candesartan 32 mg tablet 32 mg PO DAILY Qty: 30 2RF esomeprazole magnesium 40 mg capsule,delayed release(DR/EC) 40 mg PO DAILY Qty: 90 1RF aspirin 81 mg capsule 81 mg PO DAILY polyethylene glycol 3350 [Miralax] 17 gram/dose powder 17 g PO DAILY multivitamin [Daily Multi-Vitamin] Tablet 1 tab PO DAILY cranberry extract [Cranberry Concentrate] 500 mg capsule 500 mg PO BID Rx Instructions: administer with meals calcium carb and citrate-vitD3 [Citracal-D3 Slow Release] 600 mg-12.5 mcg (500 unit) tablet extended release 2 tab PO DAILY green tea extract 500 mg capsule 750 mg PO QID magnesium 200 mg tablet 200 mg PO DAILY ondansetron 4 mg tablet,disintegrating 4 mg PO Q8H PRN (Reason: nausea and vomiting) Qty: 30 2RF neomycin-polymyxin B-dexameth 3.5mg/mL-10,000 unit/mL-0.1 % drops,suspension 1 drp OPR .TAPER DIRECTED Rx Instructions: Filled 02/01/2023 Referrals Referrals: Med Hyatt DO [Primary Care Provider] -
[2023-03-23 22:07] LABS: Hematocrit (blood only) 37.9 % (37.0-47.0); Hemoglobin 13.1 g/dl (12.0-16.0); Mean Corpuscular Hgb Conc 34.6 g/dL (32.0-36.0); Mean Corpuscular Volume 89.8 fL (80.0-100.0); Mean Platelet Volume 9.3 fL (9.4-12.4); Platelet Count 258 K/uL (130-400); RDW Coefficient of Variation 13.3 % (11.5-14.5); RDW Standard Deviation 43.9 fL (36.4-46.3); Red Blood Count 4.22 M/uL (4.20-5.40); White Blood Count 21.91 K/ul (4.8-10.8)
[2023-03-23 22:23] LABS: Alanine Aminotransferase 29 U/L (7-52); Albumin Globulin Ratio 1.9 (0.9-2); Albumin Level 4.4 gm/dl (3.4-5.0); Alkaline Phosphatase 57 U/L (34-104); Anion Gap 8 (3-11); Aspartate Aminotransferase 22 U/L (13-39); BUN Creatinine Ratio 20.8 (10-20); Bilirubin,Total 0.3 mg/dl (0.2-1.0); Blood Urea Nitrogen 16 mg/dl (6-23); Calcium 8.9 mg/dl (8.6-10.3); Carbon Dioxide 26 mmol/L (21-32); Chloride 95 mmol/L (98-107); Creatine Kinase 44 U/L (26-192); Est GFR (African American) 82.8 ml/min; Est GFR (Non-African American) 71.4 ml/min; Globulin 2.3 gm/dl (2.5-4.0); Glucose 109 mg/dl (70-99(Fasting)); Lipase 60 U/L (11-82); Magnesium 2.2 mg/dl (1.7-2.4); Sodium 129 mmol/L (136-145); Total Protein 6.7 gm/dl (6.0-8.3)
[2023-03-23 22:29] LABS: Basophils # (auto) 0.07 K/uL (0-0.2); Basophils % (auto) 0.3 %; Eosinophils # (auto) 0.12 K/uL (0-0.50); Eosinophils % (auto) 0.5 %; Immature Granulocytes # (auto) 0.05 K/uL (0.01-0.20); Immature Granulocytes % (auto) 0.2 %; Lymphocytes # (auto) 15.03 K/uL (1.2-3.4); Lymphocytes % (auto) 68.6 %; Monocytes # (auto) 0.81 K/uL (0.11-0.59); Monocytes % (auto) 3.7 %; Neutrophils # (auto) 5.83 K/uL (1.40-6.50); Neutrophils % (auto) 26.7 %; Smudge Cells Present
[2023-03-23 22:30] LABS: Troponin I High Sensitivity 21.1 pg/ml (0-14)
[2023-03-23] MEDS ORDERED: IOVERSOL 350 MG 125mL Prefilled Syringe IV ONE (22:44)
[2023-03-23] MEDS ORDERED: ONDANSETRON INJ 2 MG/ML 2 ML VIAL IV STA (22:52)
--- NOTE | 2023-03-23 23:06 | CT Scan Report ---
Exam(s): CTA CHEST IV Amt: 119 ML OPTIRAY 350 EXAM: CT Angiography Chest With Intravenous Contrast CLINICAL HISTORY: Reason for exam: Chest Pain, eval for PE. TECHNIQUE: Axial computed tomographic angiography images of the chest with intravenous contrast. CTDI is 31.95 mGy and DLP is 674.34 mGy-cm. Automated exposure control was utilized for the study. A dose lowering technique was utilized adhering to the principles of ALARA. MIP reconstructed images were created and reviewed. COMPARISON: No relevant prior studies available. FINDINGS: Pulmonary arteries: Unremarkable. No acute pulmonary embolism. Aorta: Atherosclerotic changes of the aorta. No thoracic aortic aneurysm. Lungs: Unremarkable. No mass. No consolidation. Pleural space: Unremarkable. No focal consolidation, pleural effusion, or pneumothorax. Heart: Cardiomegaly. No significant pericardial effusion. No evidence of RV dysfunction. Mediastinum: Small hiatal hernia. Bones/joints: Degenerative changes of the spine. No acute fracture. No dislocation. Soft tissues: Unremarkable. Lymph nodes: Unremarkable. No enlarged lymph nodes. Liver: Hepatic cystic lesions, too small to characterize. IMPRESSION: 1. No acute pulmonary embolism. 2. No focal consolidation, pleural effusion, or pneumothorax. Electronically signed by: Sav Corona MD 03/23/23 23:06 PM
[2023-03-23] MEDS ORDERED: KETOROLAC TROMETHAMINE 15 MG/ML VIAL IV STA (23:21)
--- NOTE | 2023-03-23 23:29 | History & Physical Report ---
Date of Service March 23, 2023 Assessment & Plan (1) Acute upper back pain: Plan: Severe left upper back pain Patient with increased left paraspinal tone and severe pain at midline and left paraspinal tenderness to palpate at about the level of T4-T6. No overlying warmth, erythema, or vesicles Patient is at risk for osteopenic and pathologic fractures given history of hypocalcemia with secondary hyperparathyroidism and chronic history of CLL CTA without acute findings MRI with contrast of the thoracic spine pending. If compression fractures noted trial calcitonin for pain relief, calcium is normal on admission. Patient has had difficulty with pain control in the past. She gets extremely nauseous with narcotics, and has had adverse reactions to duloxetine/gabapentin. She has been intermittently nauseous with pain. We will add hydromorphone, Zofran for breakthrough. Lidocaine patch. Defer additional NSAIDs as has already had both Mobic and Toradol If MRI is negative, no overlying infection is noted, and otherwise eval is unremarkable due to her increased tone and severe pain would trial local tender point injection with lidocaine Elevated troponin EKG with less than [address] segment changes/depressions most prominent in V4/V5 which improved on repeat High sensitive troponin in ER 21.1, repeat pending She denies anterior chest pain, shortness of breath, difficulty breathing We will complete work-up with echo and troponin trend, suspect demand from tachycardia with pain Hyponatremia ? Pain induced SIADH. DDx does include poor solute intake with decreased p.o., patient does not have an JENA but is slightly volume contracted Urine sodium, osmolality pending Fluid restrict Hypertension Continue ARB (candesartan now, swapped from lisinopril), amlodipine was d/theresa due to leg swelling With intermittent lightheadedness/dizziness and weakness around elevated blood pressures in the past BP is normotensive when she is not having back spasms, will treat pain as noted above Borderline hypocalcemia s/p parathyroidectomy Continue calcium supplementation CLL Follows with Dr. Carreno Leukocytosis at baseline - MRI back as noted above GERD PPI DVT PPx: Lovenox Diet: HH Dispo: Med Tele for troponin trend/cardiac eval Code: DNR/DNi (2) Elevated troponin: (3) CLL (chronic lymphocytic leukemia): (4) GERD (gastroesophageal reflux disease): (5) Mares esophagus: (6) Hyperlipidemia: (7) Hypothyroid: (8) Sensory polyneuropathy: (9) Foot pain, bilateral: History of Present Illness Primary Care Provider: Med Hyatt DO [place] is an 83-year-old female with a past medical history of CLL, hypogammaglobulinemia, GERD, Mares's, hyperlipidemia, hypothyroidism, chronic cerebral ischemia, polyneuropathy which has failed nortriptyline/opioids/duloxetine/gabapentin who presented for the evaluation of left back/rib pain. She is found to have lateral ST segment changes on EKG and high-sensitivity troponin of 21.1 for which she is recommended for troponin trend and cardiac assessment. Pain muscles in L back, spasms in LL back ~T10 paraspinal Nauseus with neuropathy medications BP has been very labile most of the summer No shortness of breath, but does have pain spasm which cause her to catch her breath No chest pain in anterior chest. No chest pressure No fevers or chills No dysuria, no polyuria +nausea intermittently. None at present, seems to come and go BMs loose on miralax, no blood/melena. Has a pessary for cystocele and rectal prolapse Toradol no help Took meloxicam - Polyneuropathy without DM. 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 Medical History: Reviewed Med Review: Asa baby daily, calcium vitamin D 2/2 parathyroid surgery, estrogen vaginal cream for pessary twice weekly, trimoson gel otherwise, no longer on erythromycin drops/ointment. Levothyroxie 100mcg daily, mag 200mg daily, rosuvastatin 5mg. DOes not/never actually took trazodone due to difficulty with other related meds at night and nausea. Nexium 40mg upped 2/2 recent nausea, was previously on 20mg. Surgical History: Reviewed Family history: Reviewed Allergies: Reviewed Social History: No tobacco or alcohol use Code Status: DNR/DNI Allergies Allergy/AdvReac Type Severity Reaction Status Date / Time amlodipine AdvReac Intermediate swollen Verified 03/18/23 10:31 ankles doxepin AdvReac Intermediate Unknown Verified 03/18/23 10:31 nortriptyline AdvReac Intermediate Nausea and Verified 03/18/23 10:31 dizzy feeling Opioids-Methadone and Related AdvReac Intermediate Unknown Verified 03/18/23 10:31 duloxetine [From Cymbalta] AdvReac Mild Unknown Verified 03/18/23 10:31 gabapentin AdvReac Mild SEDATION Verified 03/18/23 10:31 Home Medications Medication Instructions Recorded Confirmed Type cranberry extract 500 mg capsule 500 mg PO BID 09/13/20 03/18/23 History (Cranberry Concentrate) multivitamin (Daily Multi-Vitamin 1 tab PO DAILY 09/13/20 03/18/23 History tablet) polyethylene glycol 3350 17 17 g PO DAILY 09/13/20 03/18/23 History gram/dose oral powder (Miralax) calcium carb,cit ER 600 mg-vit D3 2 tab PO DAILY 03/26/21 03/18/23 History 12.5 mcg (500 unit) tablet,ext.rel (Citracal-D3 Slow Release) green tea extract 500 mg capsule 750 mg PO QID 03/26/21 03/18/23 History aspirin 81 mg capsule 81 mg PO DAILY 05/06/22 03/18/23 History rosuvastatin 5 mg tablet (Crestor) 5 mg PO DAILY #90 tabs 06/23/22 03/18/23 Rx conjugated estrogens 0.625 mg/gram 0.625 mg vaginal .COMPLEX #30 grams 07/10/22 03/18/23 Rx vaginal cream (Premarin) azelastine 137 mcg (0.1 %) nasal 2 spray intranasal BID PRN allergy 08/07/22 03/18/23 Rx spray aerosol symptoms #90 mL diclofenac sodium 1 % topical gel 2 g topical QID PRN pain #100 grams 01/14/23 03/18/23 Rx magnesium 200 mg tablet 200 mg PO DAILY 02/04/23 03/18/23 History [id number] 3.5 1 drp OPR .TAPER DIRECTED 02/06/23 03/18/23 History mg/mL-10,000 unit/mL-0.1% eye drops erythromycin 5 mg/gram (0.5 %) eye 0.5 inch OPB HS 02/09/23 03/18/23 History ointment oxyquinoline 0.025 %-sodium lauryl 1 ea vaginal PRN #113.4 grams 02/09/23 03/18/23 Rx sulfate 0.01 % vaginal gel (Trimo-Espinal Jelly) esomeprazole magnesium 40 mg 40 mg PO DAILY #90 caps 02/10/23 03/18/23 Rx capsule,delayed release levothyroxine 100 mcg tablet 100 mcg PO DAILY #90 tabs 03/03/23 03/18/23 Rx trazodone 50 mg tablet 25 mg PO DAILY #15 tabs 03/10/23 03/18/23 Rx ondansetron 4 mg disintegrating 4 mg PO Q8H PRN nausea and 03/16/23 03/18/23 Rx tablet vomiting #30 tabs candesartan 32 mg tablet 32 mg PO DAILY #30 tabs 03/19/23 Rx Past Med/Surg History Medical History B12 deficiency Benign breast cyst in female Benign thyroid cyst Bilateral cataracts 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 Luis, [facility] History of basal cell carcinoma (BCC) Hypothyroid Schwannoma Thyroid nodule Surgical History H/O abdominal hysterectomy H/O colonoscopy No further tests recommended H/O parathyroidectomy History of right hip replacement Family History Mother , age 79 Bipolar disorder Father , age 72 Hypertension Alcohol abuse Sister Hypertension Melanoma Grandfather (Paternal) Lung cancer Other Dementia Myocardial infarction Denies family history of Ovarian cancer Prostate cancer Diabetes Breast cancer Colorectal cancer Stroke Social History Smoking Status: Never smoker Second Hand Exposure: No; Do You Dip or Chew Tobacco: No; Hx Alcohol Use: No Hx Substance Use: No Preferred Language: Bulgarian Communication Ability: Effective Visual Impairment: Limited Hearing Ability: Normal Room Service Attendant Required: No Beliefs That Will Affect Care: None marital status: Current Living Situation: Spouse current occupational status: retired current occupation: retired hospital RN, 2000 How many Children do You have: 2 Feels Safe at Home: Yes Childhood Exposure to Second-Hand Smoke: Yes Diet: regular caffeine: Yes (3-4 times a day) Dental Care, Regularly: Yes Physical Activity Frequency: 5-6 Times per Week Physical Activity Frequency Comment: walks Seatbelt Use: always Sunscreen Use: Yes Do you think of yourself as: straight/heterosexual Assistive Devices: None Review of Systems Review of Systems: All systems reviewed & are unremarkable except as noted in HPI & below Physical Exam Physical Exam: General: A&Ox3. NAD. Cooperative. HEENT: Atraumatic, normocephalic. Pulm: CTAB A&P. -wheezes, -rales, -rhonchi. Symmetrical chest rise. No increased work of breathing. No respiratory distress. Cardiac: RRR, -mrg. Radial pulses intact and symmetrical. Abdominal: Nontender, nondistended, soft. BS present. Extremities/back: Severe spinal and left paraspinal tenderness to palpation at approximately T4-T6, increased left paraspinal muscular tone. No overlying warmth, erythema. Sensation to soft touch is intact in hands and feet and symmetrical, strength in upper and lower extremities is grossly intact and symmetrical. Results & Data Results & Data Vital Signs (Past 12 Hours) Vital Signs Temp Pulse Pulse Resp BP BP Pulse Ox 03/23/23 21:49 71 16 97 03/23/23 21:09 80 16 171/86 H 95 03/23/23 21:10 77 03/23/23 20:43 36.7 C 78 17 188/83 H 97 O2 Del Method 03/23/23 21:49 Room Air 03/23/23 21:09 Room Air 03/23/23 21:10 03/23/23 20:43 Room Air PG Care Time/CCT Total # of Minutes Spent Total Time Spent with Patient: Total time spent is greater than 50% in coordination of care (as documented) at patient's floor/unit and/or counseling patient: Coding Level of Care Code 05968 INT INP/OBS CARE 3/75MIN Diagnoses Acute upper back pain M54.9 Elevated troponin R77.8 CLL (chronic lymphocytic leukemia) C91.10 GERD (gastroesophageal reflux disease) K21.9 Mares esophagus K22.70 Hyperlipidemia E78.5 Hypothyroid E03.9 Sensory polyneuropathy G60.8 Foot pain, bilateral M79.671; M79.672
[2023-03-24] MEDS ORDERED: HYDROmorphone INJ 0.5 MG/0.5 ML SYR IV PRN (00:04)
[2023-03-24] MEDS ORDERED: LIDOCAINE 5% 1 PATCH TD STA (00:04)
[2023-03-24] MEDS ORDERED: ACETAMINOPHEN 325 MG TAB PO PRN (00:04)
[2023-03-24] MEDS ORDERED: Heparin IV Adult Wt-Based Low-Dose *NO* Bolus Protocol IV STA (01:12)
[2023-03-24] MEDS ORDERED: NITROGLYCERIN 2% OINTMENT 30GM TUBE EXT STA (01:18)
[2023-03-24] MEDS ORDERED: LACTATED RINGER'S 500 ML IV STA (01:19)
[2023-03-24] MEDS ORDERED: ASPIRIN CHEW 324 MG PO STA (01:19)
[2023-03-24] MEDS ORDERED: GADOBUTROL 65ML VIAL IV ONE (01:26)
[2023-03-24] MEDS ORDERED: HEPARIN SODIUM/DEXTROSE 25,000 UNITS/500 ML BAG IV SCH (01:30)
[2023-03-24 03:42] LABS: Partial Thromboplastin Time 29.3 Seconds (21.0-31.0); Prothrombin Time 10.6 Seconds (9.0-12.0)
--- NOTE | 2023-03-24 03:55 | Magnetic Resonance Report ---
Exam(s): MRI T SPINE W/WO Contrast IV Amt: 6.8mL Gadavist EXAM: MR Thoracic Spine Without and With Intravenous Contrast CLINICAL HISTORY: Reason for exam: severe L thoracic paraspinal pain, hx CLL. TECHNIQUE: Magnetic resonance images of the thoracic spine without and with intravenous contrast in multiple planes. CONTRAST: Patient received 6.8mL Gadavist of IV contrast COMPARISON: CTA chest done earlier. FINDINGS: Vertebrae: No marrow edema or compression deformity. No abnormal enhancement. Discs/spinal canal/neural foramina: At the T3 level, there is linear enhancement along the right dorsal spinal cord, sagittal series 14 image 13, probable blood vessel, a finding of uncertain significance. Spinal cord: Unremarkable. Normal signal. No abnormal enhancement. Soft tissues: There is a thick walled, peripheral enhancing fluid collection in the medial subcapsular liver, at the level of the adrenal gland, nonspecific at not fully evaluated. Cannot rule out small abscess. Neoplasm felt less likely, not excluded. CT abdomen pelvis recommended for further evaluation. Stable hiatal hernia and distended esophagus. Small T2 hyperdense lesions in the left kidney and liver, compatible with cysts. IMPRESSION: 1. Peripheral enhancing lesion of the subcapsular liver measures 2.51.3 cm, is incompletely evaluated, and nonspecific, concerning for abscess, though neoplasm not excluded. CT abdomen pelvis recommended for further evaluation. 2. Prominent vessel may account for enhancement in the right dorsal spinal cord at T3. Findings of uncertain significance. 3. No abnormal cord signal, disc herniation, spinal stenosis, or other area of abnormal enhancement. Electronically signed by: Ainsley Eason M.D. 03/24/23 03:54 AM
[2023-03-24] MEDS: FAMOTIDINE 20 MG in SYRINGE 3 ML IV SCH ×2 (04:00→21:04)
[2023-03-24] MEDS: ONDANSETRON INJ 2 MG/ML 2 ML VIAL IV PRN ×2 (04:02→10:10)
[2023-03-24 04:27] LABS: Hematocrit (blood only) 36.3 % (37.0-47.0); Hemoglobin 12.3 g/dl (12.0-16.0); Mean Corpuscular Hemoglobin 30.2 pg (25.0-34.0); Mean Corpuscular Hgb Conc 33.9 g/dL (32.0-36.0); Mean Corpuscular Volume 89.2 fL (80.0-100.0); Mean Platelet Volume 8.8 fL (9.4-12.4); Nucleated RBC # (auto) 0.06 K/uL (0-0.12); Nucleated RBC % (auto) 0.3 %; Platelet Count 244 K/uL (130-400); RDW Coefficient of Variation 13.2 % (11.5-14.5); RDW Standard Deviation 43.3 fL (36.4-46.3); Red Blood Count 4.07 M/uL (4.20-5.40); White Blood Count 18.78 K/ul (4.8-10.8)
[2023-03-24] MEDS ORDERED: PROMETHAZINE HCL 6.25 MG in SODIUM CHLORIDE 0.9% 50 ML IV ONE (04:45)
[2023-03-24] MEDS: NITROGLYCERIN 2% OINTMENT 30GM TUBE EXT SCH ×2 (04:51→13:04)
[2023-03-24 05:19] LABS: Basophils # (auto) 0.06 K/uL (0-0.2); Basophils % (auto) 0.3 %; Eosinophils # (auto) 0.09 K/uL (0-0.50); Eosinophils % (auto) 0.5 %; Immature Granulocytes # (auto) 0.03 K/uL (0.01-0.20); Immature Granulocytes % (auto) 0.2 %; Lymphocytes # (auto) 12.87 K/uL (1.2-3.4); Lymphocytes % (auto) 68.5 %; Monocytes # (auto) 0.63 K/uL (0.11-0.59); Monocytes % (auto) 3.4 %; Neutrophils % (auto) 27.1 %
[2023-03-24] MEDS: LEVOTHYROXINE SODIUM 100 MCG TABLET PO SCH (06:16)
--- NOTE | 2023-03-24 07:07 | XRay Report ---
XR chest 1V portable HISTORY: Chest pain, nonspecific COMPARISON: Chest 02/06/2023. FINDINGS: The lungs are clear. Cardiac silhouette is normal in size. No pleural effusions. No pneumot horax. IMPRESSION: No acute process. ACT 112: Negative or not required by law. Electronically signed by: Boyd Bonilla M.D. 03/24/2023 7:05 AM
--- NOTE | 2023-03-24 07:23 | Hospitalist Progress Note ---
Date of Service March 24, 2023 Assessment & Plan (1) Acute upper back pain: Plan: Padmini is an 83 year old female with history of HTN, CLL, GERD, Mares esophagus, HLD, hypothyroidism/thyroid nodule, chronic cerebral ischemia, sensory polyneuropathy, meningioma, and macular degeneration who presented to the ER for severe left back pain who was found to have an elevated troponin (no CP) as well as a liver lesion and was admitted for further evaluation. Work up so far has been negative, despite lack of inciting trauma/strain pain most likely muscular in origin. Left Upper Back Pain (Severe) - Increased L Paraspinal tone/severe midline pain @ T4-T6 * No overlying warmth, erythema, or lesions - Patient with hx of hypocalcemia/s/p parathyroidectomy for primary hyperparathyroidism/chronic CLL * Calcium level wnl on admission - CTA - no acute finding - MRI w/ contrast of T spine * Prominent vessel may account for enhancement in the right dorsal spinal cord at T3 - Likely non-contributory to the presentation. * No abnormal cord signal, disc herniation, spinal stenosis, or other area of abnormal enhancement. - CTAP overall unremarkable - Pain likely from muscle cramps - - Pain Mgmt * Nauseous with narcotics in the past/adverse reactions to duloxetine/gabapentin * Hydromorphone started on admission, Zofran available, Lidocaine patch in place * Trial OMT * Consider adding muscle relaxer Elevated Troponin - EKG * 03/23 [address] segment change/depressions in V4/V5 on presentation * 03/[address] changes resolved on repeat * 03/24 0207 NSR, no specific ST or T wave changes - HS Troponin in ER 21.1, repeat 163.6, continue to trend - Patient has denied chest pain, dyspnea, and difficulty breathing throughout admission - Echo unremarkable - Suspected a/w demand ischemia? Liver lesion - MRI - * Peripheral enhancing lesion of the subcapsular liver measures 2.51.3 cm, - CT with dye * Liver mass indeterminate but abscess unlikely, no evidence of acute inflammation. * Some small cysts in liver. * Recommend repeat CT in 3 months to assess for liver changes. Polyneuropathy - Patient follows with Dr. Sue for neuropathic pain in her feet - Has had adverse reactions to nortriptyline/opioids/duloxetine/gabapentin so far Chronic sleep disturbance - Plan to give trazodone tonight, monitor efficacy Hyponatremia SIADH. DDx does include poor solute intake with decreased p.o intake. Fluid restrict Hypertension Continue ARB (candesartan now, from lisinopril), amlodipine was d/theresa due to leg swelling With intermittent lightheadedness/dizziness and weakness around elevated blood pressures in the past BP is normotensive when she is not having back spasms, will treat pain as noted above s/p parathyroidectomy Continue calcium supplementation CLL Follows with Dr. Carreno Leukocytosis at baseline - MRI back as noted above GERD PPI DVT PPx: Lovenox Diet: HH Dispo: Med Tele for troponin trend/cardiac eval Code: DNR/DNi (2) Elevated troponin: (3) CLL (chronic lymphocytic leukemia): (4) GERD (gastroesophageal reflux disease): (5) Mares esophagus: (6) Hyperlipidemia: (7) Hypothyroid: (8) Sensory polyneuropathy: (9) Foot pain, bilateral: Admission and Anticipated Discharge Date Admission Date: March 24, 2023 Supervising Physician Co-Signing Physician Notes Resident Physician Supervision Note: I independently interviewed and examined the patient and verified the jean history and physical, reviewed labs and image studies and agree with resident findings and care plan. Subjective 03/24: This morning Padmini is still experiencing severe back pain and some nausea. The pain is worse with movement. She reports some pain relief overnight from the Dilaudid but the zofran did not help her nausea. Physical Exam Physical Exam: Gen: NAD, alert, interactive Neuro: AO x 3, no focal neurologic deficits HEENT: NCAT Resp:Non-labored, no wheezing/rhonchi/rales, CTAB CV:RRR, normal S1/S2, no M/R/G Abd: Soft, non-distended, no TTP, normoactive bowels, no masses Back: No TTP along spinous processes from thoracic to lumbar spine, significant L paraspinal TTP (worst at T8), increased L paraspinal muscle tone/spasm, no overlying warmth, edema, or skin changes. Extr: 2+ dp bilaterally, no edema Results & Data Results & Data Vital Signs (Past 12 Hours) Vital Signs Temp Pulse Pulse Resp BP BP Pulse Ox 03/24/23 02:00 74 03/24/23 02:08 36.7 C 74 22 169/68 H 94 03/24/23 00:00 72 16 184/81 H 97 03/23/23 21:49 71 16 97 03/23/23 21:09 80 16 171/86 H 95 03/23/23 21:10 77 03/23/23 20:43 36.7 C 78 17 188/83 H 97 O2 Del Method 03/24/23 02:00 03/24/23 02:08 Room Air 03/24/23 00:00 Room Air 03/23/23 21:49 Room Air 03/23/23 21:09 Room Air 03/23/23 21:10 03/23/23 20:43 Room Air Resident Activity Tracking Resident Involvement: Resident Care Provided Care Provided: Adult Hospital Medicine
--- NOTE | 2023-03-24 08:48 | XCELERA ---
[id number] [id number]
--- NOTE | 2023-03-24 09:16 | Electrocardiogram Report ---
Test Reason : Blood Pressure : / mmHG Vent. Rate : 077 BPM Atrial Rate : 077 BPM P-R Int : 140 ms QRS Dur : 078 ms QT Int : 384 ms P-R-T Axes : 000 132 127 degrees QTc Int : 434 ms Probable limb lead reversal Normal sinus rhythm Right axis deviation ST depression in Lateral leads Abnormal ECG When compared with ECG of 06-FEB-2023 14:15, QRS axis Shifted right (likely limb lead reversal) T wave inversion now evident in Lateral leads Confirmed by Richmond Elaine ([id number]) on 03/24/2023 9:15:54 AM Referred By: Med Hyatt Confirmed By:Richmond Elaine
--- NOTE | 2023-03-24 09:17 | Electrocardiogram Report ---
Test Reason : Blood Pressure : / mmHG Vent. Rate : 075 BPM Atrial Rate : 075 BPM P-R Int : 152 ms QRS Dur : 080 ms QT Int : 406 ms P-R-T Axes : 050 054 051 degrees QTc Int : 453 ms Normal sinus rhythm Nonspecific ST abnormality Lateral leads Abnormal ECG When compared with ECG of 23-MAR-2023 22:03, ST depression in Lateral leads less pronounced Confirmed by Richmond Elaine ([id number]) on 03/24/2023 9:17:22 AM Referred By: Med Hyatt Confirmed By:Richmond Elaine
--- NOTE | 2023-03-24 09:17 | Electrocardiogram Report ---
Test Reason : Blood Pressure : / mmHG Vent. Rate : 078 BPM Atrial Rate : 078 BPM P-R Int : 146 ms QRS Dur : 072 ms QT Int : 386 ms P-R-T Axes : 056 068 062 degrees QTc Int : 440 ms Normal sinus rhythm with sinus arrhythmia Low voltage QRS ST depression in Lateral leads Abnormal ECG When compared with ECG of 23-MAR-2023 20:54, QRS axis Shifted left (lead reversal corrected) T wave inversion no longer evident in Lateral leads Confirmed by Richmond Elaine ([id number]) on 03/24/2023 9:16:47 AM Referred By: Med Hyatt Confirmed By:Richmond Elaine
[2023-03-24] MEDS: CALCIUM 600MG + VIT D 400 IU TAB PO SCH (09:34)
[2023-03-24] MEDS: MAGNESIUM OXIDE 400 MG TAB PO SCH (09:34)
[2023-03-24] MEDS: ASPIRIN 81 MG ECTAB PO SCH (09:34)
[2023-03-24] MEDS: LOSARTAN POTASSIUM 50 MG TAB PO SCH (09:34)
[2023-03-24] MEDS: PANTOprazole 40 MG TAB PO SCH (09:35)
[2023-03-24] MEDS: ROSUVASTATIN CALCIUM 5 MG TAB PO SCH (09:35)
[2023-03-24] MEDS: POLYETHYLENE (MIRALAX) 17 GM PACK PO SCH (09:35)
[2023-03-24 10:18] LABS: Partial Thromboplastin Time 55.1 Seconds (21.0-31.0)
[2023-03-24] MEDS ORDERED: OPTIRAY 320 100ml IV ONE (11:33)
--- NOTE | 2023-03-24 12:27 | CT Scan Report ---
CT OF THE ABDOMEN AND PELVIS WITH CONTRAST CLINICAL HISTORY: ? abscess of liver on MRI, left upper back pain COMPARISON STUDY: Right upper quadrant ultrasound February 19, 2023. Thoracic spine MRI March 24, 2023. TECHNIQUE: Following IV administration of 93 mL of Optiray, axial images of the abdomen and pelvis we re obtained from the lung bases to the proximal femurs. Images were reviewed in the axial, sagittal, and coronal planes. IV contrast was administered without complication. Automated exposure control wa s utilized for the study. A dose lowering technique was utilized adhering to the principles of ALARA . CT DOSE: 1022.89 mGy.cm FINDINGS: No pneumatosis, free air or portal venous gas is present. There is a small hiatal hernia. M ultiple water attenuation hepatic lesions reflect cysts. There is also a 2.7 x 1.3 cm mixed attenuati on subcapsular segment 6 hepatic abnormality on image 103 of 349 which corresponds to the rim-enhanci ng abnormality on MRI of March 24, 2023. There is mild biliary ductal dilatation. Layering hyperdense material within the gallbladder is present. There is no adjacent stranding. Spleen, adrenal glands an d kidneys are unremarkable with exception of several small suspected cyst. There is excreted contrast within the bladder. Pessary device is in place. There is extensive sigmoid diverticulosis without ev idence for acute diverticulitis. There is no evidence for a bowel obstruction. There is no lymphadeno isai. Right hip arthroplasty is noted. There are no acute fractures within visualized skeletal struc tures. IMPRESSION: 1. 2.7 x 1.3 cm mixed attenuation subcapsular segment 6 hepatic abnormality which corresponds to the finding on CT of March 24, 2023. This is indeterminate but unlikely to represent an abscess given lack of adjacent inflammation or edema within the adjacent liver parenchyma on MRI. This could reflect a chronic subcapsular collection. An indeterminate hepatic mass is also within the differential. A foll ow-up liver protocol CT in 3 months to ensure stability and for improved characterization is recommen ded. 2. Mild biliary ductal dilatation. This could be correlated with liver function tests. Layering mater ial within the gallbladder without adjacent stranding. This could reflect excreted contrast sludge. N o evidence for acute cholecystitis. 3. Extensive sigmoid diverticulosis. No evidence for acute diverticulitis. 4. No bowel obstruction. ACT 112: Positive. There are findings on this exam that require communication between the performing entity and the patient following Patient Test Result Information Act ([place] Act 112) guidelines. Electronically signed by: Elian Baer M.D. 03/24/2023 12:25 PM
--- NOTE | 2023-03-24 16:37 | Cardiology Consultation ---
Date of Consultation March 24, 2023 Assessment & Plan (1) Elevated troponin: Suspect some underlying coronary artery disease with hemodynamic stress of intermittent hypertension prompting minor demand ischemia in patient with nonspecific/noncardiac symptoms which have elicited transient hypertension secondary to discomfort and nausea. ECG is chronically abnormal but showed no major ST changes. Troponin shows a modest elevation then flattening of the curve. Symptoms are out of proportion to ECG and troponin findings, appear to be GI/musculoskeletal in nature. In the absence of more characteristic symptoms, dynamic ECG changes which correlate with symptoms, or further/more dramatic troponin elevations, would treat conservatively by managing hemodynamics. Since this does not appear to be acute coronary syndrome, would discontinue heparin. Since she may well have underlying coronary disease (abnormal ECG/advanced age) could continue aspirin, but if she continues to have nausea would be reasonable to stop this as well to avoid aggravating any gastric symptoms and confounding her work-up. Continue ARB (on losartan in place of candesartan), could use clonidine 0.1 mg PRN for any acute BP elevations. We'll continue to follow along. (2) Nausea: Etiology uncertain, does not appear to be cardiac. Nonspecific findings on GI imaging studies. Her nausea has markedly improved throughout the day. (3) Back pain: Her left-sided back pain is clearly noncardiac given its spasmodic/transient nature. (4) CLL (chronic lymphocytic leukemia): History of Present Illness Reason for Consultation: Rising Troponin, Echo Pending, No sx Requesting Physician: Gertrude Grace MD Attending Physician: Gertrude Grace MD History of Present Illness 83-year-old woman with history of CLL, polyneuropathy, no other medical problems, but no cardiac history who was admitted yesterday with severe intermittent left posterior thoracic pain and nausea and he was incidentally noted to have rising troponin. She denies chest pain at any time and her back pain is very atypical for angina, moderate to severe pain which occurs in spasms and lasts for only a few seconds. This morning she was extremely nauseous, however upon revisiting her this afternoon her back pain has completely resolved and she has only very minimal remaining nausea. She denies dyspnea, palpitations, presyncope, or syncope. Cardiac evaluation here included an ECG with persistent anterolateral minor ST depression which varied slightly. Troponin increased from 21 to [address] showed no evidence of pulmonary embolism. Echocardiogram showed EF 55 to 60% with normal LV wall motion, moderate LVH, normal RVSP, no significant valvular disease. Aside from minimal nausea, she had no somatic complaints at the time of my evaluation. Allergies Allergy/AdvReac Type Severity Reaction Status Date / Time amlodipine AdvReac Intermediate swollen Verified 03/18/23 10:31 ankles doxepin AdvReac Intermediate Unknown Verified 03/18/23 10:31 nortriptyline AdvReac Intermediate Nausea and Verified 03/18/23 10:31 dizzy feeling Opioids-Methadone and Related AdvReac Intermediate Unknown Verified 03/18/23 10:31 duloxetine [From Cymbalta] AdvReac Mild Unknown Verified 03/18/23 10:31 gabapentin AdvReac Mild SEDATION Verified 03/18/23 10:31 Home Medications Medication Instructions Recorded Confirmed Type cranberry extract 500 mg capsule 500 mg PO BID 09/13/20 03/18/23 History (Cranberry Concentrate) multivitamin (Daily Multi-Vitamin 1 tab PO DAILY 09/13/20 03/18/23 History tablet) polyethylene glycol 3350 17 17 g PO DAILY 09/13/20 03/18/23 History gram/dose oral powder (Miralax) calcium carb,cit ER 600 mg-vit D3 2 tab PO DAILY 03/26/21 03/18/23 History 12.5 mcg (500 unit) tablet,ext.rel (Citracal-D3 Slow Release) green tea extract 500 mg capsule 750 mg PO QID 03/26/21 03/18/23 History aspirin 81 mg capsule 81 mg PO DAILY 05/06/22 03/18/23 History rosuvastatin 5 mg tablet (Crestor) 5 mg PO DAILY #90 tabs 06/23/22 03/18/23 Rx conjugated estrogens 0.625 mg/gram 0.625 mg vaginal .COMPLEX #30 grams 07/10/22 03/18/23 Rx vaginal cream (Premarin) azelastine 137 mcg (0.1 %) nasal 2 spray intranasal BID PRN allergy 08/07/22 03/18/23 Rx spray aerosol symptoms #90 mL diclofenac sodium 1 % topical gel 2 g topical QID PRN pain #100 grams 01/14/23 03/18/23 Rx magnesium 200 mg tablet 200 mg PO DAILY 02/04/23 03/18/23 History moerojfw-jexvubcwm-ouftpnwr 3.5 1 drp OPR .TAPER DIRECTED 02/06/23 03/18/23 History mg/mL-10,000 unit/mL-0.1% eye drops erythromycin 5 mg/gram (0.5 %) eye 0.5 inch OPB HS 02/09/23 03/18/23 History ointment oxyquinoline 0.025 %-sodium lauryl 1 ea vaginal PRN #113.4 grams 02/09/23 03/18/23 Rx sulfate 0.01 % vaginal gel (Trimo-Espinal Jelly) esomeprazole magnesium 40 mg 40 mg PO DAILY #90 caps 02/10/23 03/18/23 Rx capsule,delayed release levothyroxine 100 mcg tablet 100 mcg PO DAILY #90 tabs 03/03/23 03/18/23 Rx trazodone 50 mg tablet 25 mg PO DAILY #15 tabs 03/10/23 03/18/23 Rx ondansetron 4 mg disintegrating 4 mg PO Q8H PRN nausea and 03/16/23 03/18/23 Rx tablet vomiting #30 tabs candesartan 32 mg tablet 32 mg PO DAILY #30 tabs 03/19/23 Rx Patient History Medical History B12 deficiency Benign breast cyst in female Benign thyroid cyst Bilateral cataracts 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 Luis, [facility] [place] History of basal cell carcinoma (BCC) Hypothyroid Schwannoma Thyroid nodule Surgical History H/O abdominal hysterectomy H/O colonoscopy No further tests recommended H/O parathyroidectomy History of right hip replacement Family History Mother , age 79 Bipolar disorder Father , age 72 Hypertension Alcohol abuse Sister Hypertension Melanoma Grandfather (Paternal) Lung cancer Other Dementia Myocardial infarction Denies family history of Ovarian cancer Prostate cancer Diabetes Breast cancer Colorectal cancer Stroke Social History Smoking Status: Never smoker Second Hand Exposure: No; Do You Dip or Chew Tobacco: No; Hx Alcohol Use: No Hx Substance Use: No Preferred Language: Polish Communication Ability: Effective Visual Impairment: Limited Hearing Ability: Normal Inspector And Sorter Required: No Beliefs That Will Affect Care: None marital status: Current Living Situation: Spouse current occupational status: retired current occupation: retired hospital RN, 2000 How many Children do You have: 2 Feels Safe at Home: Yes Childhood Exposure to Second-Hand Smoke: Yes Diet: regular caffeine: Yes (3-4 times a day) Dental Care, Regularly: Yes Physical Activity Frequency: 5-6 Times per Week Physical Activity Frequency Comment: walks Seatbelt Use: always Sunscreen Use: Yes Do you think of yourself as: straight/heterosexual Assistive Devices: Glasses and Stair Lift Physical Exam Physical Exam: Elderly white female appeared uncomfortable this morning but was very comfortable this afternoon. BP normotensive. Pulse 60 bpm and regular. Skin: no ecchymoses or generalized lesions. HEENT: unremarkable. Neck: JVP at the clavicle at 90 degrees, no carotid bruits. Lungs: clear. Cardiac: regular rhythm, normal S1-2, no murmur. Abdomen: Nontender. Extremities: no edema, pulses intact. Neurologic: normal affect and conversation, nonfocal. Results & Data Laboratory Results Troponin as noted in HPI. WBC 18.78 (chronically elevated due to CLL), normal hemoglobin and platelet count. Sodium 129, potassium 4.0, BUN 16, creatinine 0.77. Normal TSH. PG Care Time/CCT Total # of Minutes Spent Total Time Spent with Patient: Total time spent is greater than 50% in coordination of care (as documented) at patient's floor/unit and/or counseling patient: Coding Level of Care Code 90140 IN/OBS CONSULT LVL 4,60M Diagnoses Elevated troponin R77.8 Nausea R11.0 Back pain M54.9 CLL (chronic lymphocytic leukemia) C91.10
[2023-03-24] MEDS ORDERED: NITROGLYCERIN 2% OINTMENT 30GM TUBE EXT PRN (17:54)
[2023-03-24] MEDS: traZODone HCL 50 MG TAB PO ONE (21:04)
[2023-03-24] MEDS ORDERED: CALCIUM CARBONATE 500 MG CHEWABLE TAB PO ONE (22:27)
[2023-03-25] MEDS ORDERED: CALCIUM CARBONATE 500 MG CHEWABLE TAB ONE (00:57)
[2023-03-25] MEDS: LEVOTHYROXINE SODIUM 100 MCG TABLET PO SCH (06:21)
[2023-03-25] MEDS: traZODone HCL 50 MG TAB PO ONE (06:23)
--- NOTE | 2023-03-25 06:55 | Hospitalist Progress Note ---
Date of Service March 25, 2023 Assessment & Plan (1) Acute upper back pain: Plan: Padmini is an 83 year old female with history of HTN, CLL, GERD, Mares esophagus, HLD, hypothyroidism/thyroid nodule, chronic cerebral ischemia, sensory polyneuropathy, meningioma, and macular degeneration who presented to the ER for severe left back pain who was found to have an elevated troponin (no CP) as well as a liver lesion and was admitted for further evaluation. Work up so far has been negative, despite lack of inciting trauma/strain pain likely partially related to muscle spasm/Enrique's reflex. Given location of pain at approximately the level of T5-6, and patient's history of GERD, may also be related to her acid reflux. Left Upper Back Pain (Severe) - L Paraspinal tone/severe midline pain @ T4-T6 -- resolved 03/25 * No overlying warmth, erythema, or lesions - CTA - no acute finding - MRI w/ contrast of T spine - no acute finding - CTAP overall unremarkable - Pain likely from muscle spasm/Enrique's reflex secondary to GERD - Pain Mgmt * Nauseous with narcotics in the past/adverse reactions to duloxetine/gabapentin * Last dose hydromorphone (03/24). Zofran available, Lidocaine patch available * Trial OMT -- performed 03/25, treated Enrique's point with rotatory motion, patient noted relief of point tenderness w/o adverse effect Elevated Troponin - EKG * 03/23 [address] segment change/depressions in V4/V5 on presentation * 03/[address] changes resolved on repeat * 03/24 0207 NSR, no specific ST or T wave changes * 03/25 NSR, no specific ST or T wave changes - Troponin decreased to 123 03/24, repeat 03/25 back up to 213 -Repeat EKG no new findings -No active cardiac sx (no CP or dyspnea) -TTE 03/24 w/ evidence of EF 55-60%, mod concentric LVH, and grade 1 diastolic dysfunction -Dobutamine Stress Echo 03/25 w/ evidence of microvascular ischemia - Cardiology consultation: * Troponin elevation attributable to demand ischemia * Back Pain/nausea not cardiac in origin as not produced upon stress echo evaluation * No evidence of macrovascular DE on Dobutamine stress echo (no wall motion abnormality) * Evidence microvascular DE given patient's episode of heart burn resolved with sublingual nitroglycerin (and exaggeration of underlying ST anomalies) during stress echo - Results suggest that patient has small vessel coronary disease that would pre-dispose her to anginal symptoms during hemodynamic stress * Patient would not benefit from revascularization procedure, but would benefit from tighter BP control (Hydrochlorothiazide + ARB) as well as Rx for sublingual Nitroglycerin * Continue Aspirin/Rosuvastatin for presumed cardiac and known cerebrovascular disease GERD - Patient manages symptoms at home w/ Nexium - Known history of Mares Esophagus - Patient started on Pepcid BID and Pantoprazole 40 mg daily upon admission - Suspect that uncontrolled GERD contributing to patients presentation of nausea/back pain * T5-6 Enrique's point present on examination * Symptoms resolved in 24-48 hours of new reflux regimen - Would recommend discharge on Pepcid/Pantoprazole * Encourage close follow up with PCP regarding indications for additional imaging Liver lesion - MRI - Peripheral enhancing lesion of the subcapsular liver measures 2.51.3 cm, - CT w/ Contrast * Liver mass indeterminate but abscess unlikely, no evidence of acute inflammation. * Some small cysts in liver. * Recommend repeat CT in 3 months to assess for liver changes. Polyneuropathy - Patient follows with Dr. Sue for neuropathic pain in her feet - Has had adverse reactions to nortriptyline/opioids/duloxetine/gabapentin so far Chronic sleep disturbance - Patient deferred trial of trazodone until home Hyponatremia SIADH. DDx does include poor solute intake with decreased p.o intake. Fluid restrict Hypertension - Patient taking ARB and Amlodipine at home * Amlodipine previously discontinued d/t leg swelling * Lisinopril changed to Candesartan - BP tends to elevate with back spasms/nausea episodes - 03/25 Add low dose HCTZ (12.5 mg PO daily) per Cardiology recommendations S/p Parathyroidectomy (Primary Hypoparathyroidism) Continue calcium supplementation Primary Hypothyroidism --Continue levothyroxine CLL Follows with Dr. Carreno Leukocytosis at baseline - MRI back as noted above DVT PPx: Lovenox Diet: HH Dispo: Med Tele Code: DNR/DNI (2) Elevated troponin: (3) CLL (chronic lymphocytic leukemia): (4) GERD (gastroesophageal reflux disease): (5) Mares esophagus: (6) Hyperlipidemia: (7) Hypothyroid: (8) Sensory polyneuropathy: (9) Foot pain, bilateral: Admission and Anticipated Discharge Date Admission Date: March 24, 2023 Supervising Physician Co-Signing Physician Notes I supervised the medical student, Tapan Puckett, in the history and physical examination of this patient and agree with the documentation as provided above. Any additional recommendations/comments will be outlined here:Patient presented for evaluation of acute left sided back pain, evaluation thus far has been reassuring. Patient has longstanding history of GERD, managed with Nexium. She has been managed inpatient with Pepcid/Pantoprazole and as of this morning, patient's symptoms have resolved. Physical exam with evidence of L T5-6 Enrique point, heart RRR, and lungs CTAB. Suspect acute muscle spasm/Enrique's point (T5-6) in the setting of worsening GERD/reflux symptoms, symptoms now controlled with antihistamine/PPI regimen. Patient received trial of OMT this AM for T5-6 Enrique's point and noted positive response to rotatory treatment technique. Patient's elevated troponin levels evaluated by Cardiology, who noted evidence of microvascular ischemia, and recommended optimization of hypertension (with addition of HCTZ) as well as Rx for Nitroglycerin PRN. ~Guerda Barton DO Attending Physicain Medical Student Supervision Note: I independently interviewed and examined the patient and verified the jean history and physical, reviewed labs and image studies, discussed the case with the medical student Jane Puckett and the Resident physician Guerda Barton and agree with the findings and care plan. Subjective 03/25: This morning Padmini's back pain has resolved. She has not needed pain medication or the lidocaine patch today, and is comfortable sitting up in bed and moving around. She says that her nausea has similarly improved over the last day, and is very mild right now. Physical Exam Physical Exam: Gen: NAD, alert, interactive Neuro: AO x 3, no focal neurologic deficits HEENT: NCAT Resp:Non-labored, no wheezing/rhonchi/rales, CTAB CV:RRR, normal S1/S2, no M/R/G Abd: Soft, non-distended, no TTP, normoactive bowels, no masses Back: No TTP along spinous processes from thoracic to lumbar spine, mild tenderness to palpation in L paraspinal muscles, relaxed L paraspinal muscles compared to yesterday, no overlying warmth, edema, or skin changes. L T5-6 Enrique point present. Extr: 2+ dp bilaterally, no edema Results & Data Results & Data Vital Signs (Past 12 Hours) Vital Signs Temp Pulse Pulse Resp BP Pulse Ox O2 Del Method 03/25/23 03:10 36.6 C 71 18 111/62 93 Room Air 03/25/23 00:00 65 03/24/23 23:14 36.5 C 63 18 158/72 H 96 Room Air 03/24/23 19:31 36.5 C 70 18 147/64 H 96 Room Air Resident Activity Tracking Resident Involvement: Resident Care Provided Care Provided: Adult Hospital Medicine
[2023-03-25 07:46] LABS: Hematocrit (blood only) 39.4 % (37.0-47.0); Hemoglobin 13.2 g/dl (12.0-16.0); Mean Corpuscular Hemoglobin 30.5 pg (25.0-34.0); Mean Corpuscular Hgb Conc 33.5 g/dL (32.0-36.0); Mean Platelet Volume 8.7 fL (9.4-12.4); Platelet Count 252 K/uL (130-400); RDW Coefficient of Variation 13.8 % (11.5-14.5); RDW Standard Deviation 45.6 fL (36.4-46.3); Red Blood Count 4.33 M/uL (4.20-5.40); White Blood Count 18.31 K/ul (4.8-10.8)
[2023-03-25 08:04] LABS: Calcium 8.7 mg/dl (8.6-10.3); Creatinine Clr Calc Pharmacy 53.8 ml/min; Est GFR (African American) 82.8 ml/min; Est GFR (Non-African American) 71.4 ml/min; Magnesium 2.4 mg/dl (1.7-2.4); Potassium 4.5 mmol/L (3.5-5.1)
[2023-03-25] MEDS: MAGNESIUM OXIDE 400 MG TAB PO SCH (08:11)
[2023-03-25] MEDS: ROSUVASTATIN CALCIUM 5 MG TAB PO SCH (08:11)
[2023-03-25] MEDS: ASPIRIN 81 MG ECTAB PO SCH (08:11)
[2023-03-25] MEDS: CALCIUM 600MG + VIT D 400 IU TAB PO SCH (08:12)
[2023-03-25] MEDS: PANTOprazole 40 MG TAB PO SCH (08:12)
[2023-03-25] MEDS: LOSARTAN POTASSIUM 50 MG TAB PO SCH (08:12)
[2023-03-25] MEDS: POLYETHYLENE (MIRALAX) 17 GM PACK PO SCH (08:13)
[2023-03-25] MEDS: FAMOTIDINE 20 MG in SYRINGE 3 ML IV SCH ×2 (08:13→22:05)
[2023-03-25 08:47] LABS: Basophils # (auto) 0.05 K/uL (0-0.2); Basophils % (auto) 0.3 %; Eosinophils # (auto) 0.19 K/uL (0-0.50); Immature Granulocytes # (auto) 0.03 K/uL (0.01-0.20); Immature Granulocytes % (auto) 0.2 %; Lymphocytes # (auto) 13.25 K/uL (1.2-3.4); Lymphocytes % (auto) 72.4 %; Monocytes # (auto) 0.72 K/uL (0.11-0.59); Monocytes % (auto) 3.9 %; Neutrophils # (auto) 4.07 K/uL (1.40-6.50); Neutrophils % (auto) 22.2 %
[2023-03-25] MEDS: ONDANSETRON INJ 2 MG/ML 2 ML VIAL IV PRN (11:11)
--- NOTE | 2023-03-25 12:42 | Cardiology Progress Note ---
Date of Service March 25, 2023 Assessment & Plan (1) Elevated troponin: Plan: Her back spasm pain is very atypical for any cardiac process and has not recurred, but her ongoing mild nausea may be GI or cardiac in etiology. Given her fluctuating troponin (began to drop then allen again), best to risk stratify while she is an inpatient rather than waiting to perform outpatient stress study (as had been previously considered). Since she has generalized weakness but no chest discomfort when walking, and due to her polyneuropathy, will perform pharmacologic stress study rather than exercise treadmill test. Dobutamine stress echocardiogram ordered for later to day. Further recommendations based on results of this study. (2) Nausea: Plan: As above. (3) Back pain: Plan: Her left-sided back pain is clearly noncardiac given its spasmodic/transient nature. (4) CLL (chronic lymphocytic leukemia): Admission and Anticipated Discharge Date Admission Date: March 24, 2023 Subjective [place] well this morning, no nausea or backslash chest discomfort. No dyspnea, palpitations, or lightheadedness. At asked her to ambulate, she felt weak and mildly nauseous but noted no chest discomfort and was able to walk a short distance. She has a history of polyneuropathy. Telemetry showed sinus rhythm in the 50-60 bpm range. Physical Exam Physical Exam: No distress. BP normotensive. Pulse 70 bpm and regular. Skin: no ecchymoses or generalized lesions. HEENT: unremarkable. Neck: JVP at the clavicle at 90 degrees, no carotid bruits. Lungs: clear. Cardiac: regular rhythm, normal S1-2, no murmur. Abdomen: Nontender. Extremities: no edema, pulses intact. Neurologic: normal affect and conversation, nonfocal. Results & Data Vital Signs (Past 12 Hours) Vital Signs Temp Pulse Pulse Resp BP Pulse Ox O2 Del Method 03/25/23 11:00 97.7 F 75 18 123/70 98 Room Air 03/25/23 08:00 Room Air 03/25/23 07:46 98.2 F 61 18 114/68 97 Room Air 03/25/23 07:00 56 L 03/25/23 03:10 97.9 F 71 18 111/62 93 Room Air Laboratory Results Troponin dropped then increased, serial troponins 21, 134, 163, 170, 123, 213. Normal electrolytes, BUN 10, creatinine 0.77. Diagnostic Findings ECG showed sinus rhythm at [address] abnormalities in the lateral leads, no change compared with yesterday's ECG. PG Care Time/CCT Total # of Minutes Spent Total Time Spent with Patient: Total time spent is greater than 50% in coordination of care (as documented) at patient's floor/unit and/or counseling patient: Coding Level of Care Code 81174 SUB INP/OBS CARE 3/50MIN Diagnoses Elevated troponin R77.8 Nausea R11.0 Back pain M54.9 CLL (chronic lymphocytic leukemia) C91.10
--- NOTE | 2023-03-25 12:47 | Electrocardiogram Report ---
Test Reason : Blood Pressure : / mmHG Vent. Rate : 078 BPM Atrial Rate : 078 BPM P-R Int : 144 ms QRS Dur : 078 ms QT Int : 418 ms P-R-T Axes : 061 054 064 degrees QTc Int : 476 ms Normal sinus rhythm Low voltage QRS Nonspecific ST abnormality Lateral leads Abnormal ECG When compared with ECG of 24-MAR-2023 02:27, No significant change was found Confirmed by Richmond Elaine ([id number]) on 03/25/2023 12:46:38 PM Referred By: [facility] Confirmed By:Richmond Elaine
[2023-03-25] MEDS ORDERED: ATROPINE SULFATE 0.1 MG/ML 10ML SYR IV ONE (14:25)
[2023-03-25] MEDS ORDERED: METOPROLOL TARTRATE 1 MG/ML VIAL IV ONE (14:25)
[2023-03-25] MEDS ORDERED: DOBUTamine HCL 12.5 MG/ML 20 ML VIAL IV ONE (14:26)
[2023-03-25] MEDS ORDERED: NITROGLYCERIN SL 0.4 MG/TAB TAB ONE (16:03)
--- NOTE | 2023-03-25 16:44 | XCELERA ---
[id number]
[2023-03-25] MEDS: hydroCHLOROthiazide 25 MG TAB PO SCH (18:11)
[2023-03-26] MEDS: LEVOTHYROXINE SODIUM 100 MCG TABLET PO SCH (05:12)
[2023-03-26 08:36] LABS: BUN Creatinine Ratio 15.5 (10-20); Blood Urea Nitrogen 13 mg/dl (6-23); Calcium 8.4 mg/dl (8.6-10.3); Carbon Dioxide 28 mmol/L (21-32); Chloride 102 mmol/L (98-107); Creatinine Clr Calc Pharmacy 49.3 ml/min; Est GFR (African American) 74.5 ml/min; Est GFR (Non-African American) 64.3 ml/min; Glucose 82 mg/dl (70-99(Fasting))
[2023-03-26] MEDS: hydroCHLOROthiazide 25 MG TAB PO SCH (08:43)
[2023-03-26] MEDS: CALCIUM 600MG + VIT D 400 IU TAB PO SCH (08:43)
[2023-03-26] MEDS: ASPIRIN 81 MG ECTAB PO SCH (08:43)
[2023-03-26] MEDS: PANTOprazole 40 MG TAB PO SCH (08:44)
[2023-03-26] MEDS: LOSARTAN POTASSIUM 50 MG TAB PO SCH (08:44)
[2023-03-26] MEDS: MAGNESIUM OXIDE 400 MG TAB PO SCH (08:44)
[2023-03-26] MEDS: POLYETHYLENE (MIRALAX) 17 GM PACK PO SCH (08:45)
[2023-03-26] MEDS: ROSUVASTATIN CALCIUM 5 MG TAB PO SCH (08:45)
[2023-03-26 09:06] LABS: Hematocrit (blood only) 36.9 % (37.0-47.0); Hemoglobin 12.3 g/dl (12.0-16.0); Mean Corpuscular Hemoglobin 30.6 pg (25.0-34.0); Mean Corpuscular Hgb Conc 33.3 g/dL (32.0-36.0); Mean Corpuscular Volume 91.8 fL (80.0-100.0); Mean Platelet Volume 9.3 fL (9.4-12.4); Platelet Count 247 K/uL (130-400); RDW Coefficient of Variation 13.8 % (11.5-14.5); RDW Standard Deviation 46.7 fL (36.4-46.3); Red Blood Count 4.02 M/uL (4.20-5.40); White Blood Count 15.05 K/ul (4.8-10.8)
[2023-03-26 09:43] LABS: Potassium 4.3 mmol/L (3.5-5.1)
[2023-03-26] MEDS: FAMOTIDINE 20 MG in SYRINGE 3 ML IV SCH (10:02)
--- NOTE | 2023-03-26 10:30 | Discharge Summary ---
Date of Service March 26, 2023 Admission HPI Per Admitting Provider Padmini is an 83-year-old female with a past medical history of CLL, hypogammaglobulinemia, GERD, Mares's, hyperlipidemia, hypothyroidism, chronic cerebral ischemia, polyneuropathy which has failed nortriptyline/opioids/d uloxetine/gabapentin who presented for the evaluation of left back/rib pain. She is found to have lateral ST segment changes on EKG and high-sensitivity troponin of 21.1 for which she is recommended for troponin trend and cardiac assessment. Pain muscles in L back, spasms in LL back ~T10 paraspinal Nauseus with neuropathy medications BP has been very labile most of the summer No shortness of breath, but does have pain spasm which cause her to catch her breath No chest pain in anterior chest. No chest pressure No fevers or chills No dysuria, no polyuria +nausea intermittently. None at present, seems to come and go BMs loose on miralax, no blood/melena. Has a pessary for cystocele and rectal prolapse Toradol no help Took meloxicam - Polyneuropathy without DM. 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 Medical History: Reviewed Med Review: Asa baby daily, calcium vitamin D 2/2 parathyroid surgery, estrogen vaginal cream for pessary twice weekly, trimoson gel otherwise, no longer on erythromycin drops/ointment. Levothyroxie 100mcg daily, mag 200mg daily, rosuvastatin 5mg. DOes not/never actually took trazodone due to difficulty with other related meds at night and nausea. Nexium 40mg upped 2/2 recent nausea, was previously on 20mg. Surgical History: Reviewed Family history: Reviewed Allergies: Reviewed Social History: No tobacco or alcohol use Code Status: DNR/DNI Admission Exam Per Admitting Provider General: A&Ox3. NAD. Cooperative. HEENT: Atraumatic, normocephalic. Pulm: CTAB A&P. -wheezes, -rales, -rhonchi. Symmetrical chest rise. No increased work of breathing. No respiratory distress. Cardiac: RRR, -mrg. Radial pulses intact and symmetrical. Abdominal: Nontender, nondistended, soft. BS present. Extremities/back: Severe spinal and left paraspinal tenderness to palpation at approximately T4-T6, increased left paraspinal muscular tone. No overlying warmth, erythema. Sensation to soft touch is intact in hands and feet and symmetrical, strength in upper and lower extremities is grossly intact and symmetrical. Principal Diagnosis Left Back Pain Elevated Troponin Discharge Exam Gen: NAD, alert, interactive Neuro: AO x 3, no focal neurologic deficits HEENT: NCAT Resp:Non-labored, no wheezing/rhonchi/rales, CTAB CV:RRR, normal S1/S2, no M/R/G Abd: Soft, non-distended, no TTP, normoactive bowels, no masses Back: No TTP along spinous processes from thoracic to lumbar spine, mild tenderness to palpation in L paraspinal muscles, relaxed L paraspinal muscles compared to yesterday, no overlying warmth, edema, or skin changes. L T5-6 Enrique point resolved. Extr: 2+ dp bilaterally, no edema Discharge Data Allergies Allergy/AdvReac Type Severity Reaction Status Date / Time amlodipine AdvReac Intermediate swollen Verified 03/18/23 10:31 ankles doxepin AdvReac Intermediate Unknown Verified 03/18/23 10:31 nortriptyline AdvReac Intermediate Nausea and Verified 03/18/23 10:31 dizzy feeling Opioids-Methadone and Related AdvReac Intermediate Unknown Verified 03/18/23 10:31 duloxetine [From Cymbalta] AdvReac Mild Unknown Verified 03/18/23 10:31 gabapentin AdvReac Mild SEDATION Verified 03/18/23 10:31 Consultations 03/23/23 23:11 ED Decision to Admit Stat 03/24/23 08:23 Consult Cardiology Routine Ordered Studies 03/23/23 21:44 CT angio chest PE protocol Stat 03/24/23 00:04 MR thoracic spine wo/w con Routine 03/24/23 04:05 CT Abd and Pelvis [CT abd pelvis IV con only] Urgent Hospital Course (1) Acute upper back pain: Padmini is an 83 year old female with history of HTN, CLL, GERD, Mares esophagus, HLD, hypothyroidism/thyroid nodule, chronic cerebral ischemia, sensory polyneuropathy, meningioma, and macular degeneration who presented to the ER for severe left back pain who was found to have an elevated troponin (no CP) as well as a liver lesion and was admitted for further evaluation. Back pain extensive work up was negative. Pain most likely due to a combination of muscle spasm/Enrique's reflex, given location of pain at approximately the level of T5-6, patient's history of poorly controlled GERD, and improvement after 2 days of intensive acid suppression. For elevated troponin - Cardiology consulted - Per cardiology, patient's fluctuating troponin levels and stress echo results of 03/25 w/ evidence of microvascular ischemia can be attributed to demand ischemia superimposed on microvascular heart disease. Patient would not benefit from revascularization procedure, but would benefit from tighter BP control (Hydrochlorothiazide + ARB) as well as Rx for sublingual Nitroglycerin. Rx of hctz sent. Amlodipine d/theresa due to leg edema. GERD management with Pepcid/Pantoprazole Liver lesion - MRI - Peripheral enhancing lesion of the subcapsular liver measures 2.51.3 cm, - CT w/ Contrast * Liver mass indeterminate but abscess unlikely, no evidence of acute inflamm ation. * Some small cysts in liver. * Recommend repeat CT in 3 months to assess for liver changes. 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: Total Time Total Time Spent Total Time Spent (In Minutes): See attending attestation Discharge Plan Discharge Items Patient Disposition: Home - Self-Care Reason For Visit: BACK PAIN, TROP ELEVATION Discharge Diagnosis: Left Upper Back Pain (Enrique's Reflex) Elevated Troponin Condition on Discharge: Good Activity: Per Instructions section Non-emergency contact: Primary Care Provider Call non-emergency contact if: you have any medication questions and your pain is not controlled Follow-up/Referrals: Med Hyatt DO [Primary Care Provider] - 04/02/23 11:30 am Diet: Heart Healthy Addtl Attending Provider Instructions: You came to the hospital due to intractable nausea and back pain. While in the ED, you were found to have mildly elevated troponin, a lab value that can indicate that your heart is working harder than normal. While in the hospital you had multiple imaging studies done. You had a chest x- ray, which showed no clots in your lungs. You had an MRI of the spine, which was reassuring in that it showed no fractures or bone lesions which might be causing your back pain. You had a CT scan which was also reassuring in that it did not show any inflammation or infectious process which might have caused your back pain. The CT did show some masses in your liver which are most likely cysts. We recommend you get a repeat CT of your abdomen in 3 months, to confirm that there have been no changes in these liver findings. Based on your clear imaging studies, your history of acid reflux, and the location of your back pain, it was most likely caused by a combination of uncontrolled acid reflux and muscle spasm. Your back pain improved by your second day inpatient, after 2 days on a strong regimen of anti-acid medications, which fits with your pain being caused by acid reflux. We prescribed you Pepcid to take 20 mg twice daily and Pantoprazole to take 40 mg once daily. If your acid reflux continues to bother you after a few months on these new medications, please follow up with your PCP, as this may be an indication you will need an endoscopy. Because your troponin remained elevated, you had a cardiology consult. They did not consider your back pain to be cardiac in nature. You had multiple EKGs of y our heart done while you were inpatient, these were consistent with your previous EKGs, and were not concerning for heart attack or arrhythmia. You had an echo of your heart done, which was also reassuring as to your heart function. Because of your high troponin, you had a stress echo performed while you were here. During this test, you felt chest pain which resolved with sublingual nitroglycerin, which is a sign that you are having angina with exertion. This echo showed no signs of large vessel heart disease, but did show that you have some degree of heart disease in very small vessels, which can cause pain with exertion. Cardiology considers your elevated troponin to be due to demand ischemia, because your pain was making your heart have to work harder than usual. They recommend you add an additional blood pressure medication called hydrochlorothiazide, because having better blood pressure control will help protect these blood vessels. We are also prescribing you some nitroglycerin to take home. If you are experiencing chest pain similar to what you felt during the stress test, you can place one tab under your tongue to relieve your symptoms. Pending Studies at Discharge: No Stand-Alone Forms: [employer] Smoking Cessation Medications and DC Order Prescriptions: New nitroglycerin 0.3 mg tablet, sublingual 0.3 mg sublingual Q5M 30 Days Qty: 60 0RF Rx Instructions: Take for anginal symptoms (heart burn/chest pain), repeat every 5 minutes if symptoms persist. pantoprazole 40 mg Tablet,Delayed Release (Dr/Ec) 40 mg PO DAILY 30 Days Qty: 30 0RF hydrochlorothiazide 25 mg Tablet 12.5 mg PO QAM 30 Days Qty: 15 0RF famotidine 20 mg tablet 20 mg PO BID 30 Days Qty: 60 0RF Continued rosuvastatin [Crestor] 5 mg tablet 5 mg PO DAILY Qty: 90 3RF Premarin 0.625 mg/gram cream 0.625 mg vaginal .COMPLEX Qty: 30 3RF Rx Instructions: Apply pea sized amount 1-2 times weekly. azelastine 137 mcg (0.1 %) aerosol,spray 2 spray intranasal BID PRN (Reason: allergy symptoms) Qty: 90 3RF Rx Instructions: administer into each nostril diclofenac sodium 1 % gel 2 g topical QID PRN (Reason: pain) Qty: 100 3RF erythromycin 5 mg/gram (0.5 %) ointment 0.5 inch OPB HS Rx Instructions: Start 02/01/2023- pt states for 1 month for eye infection Trimo-Espinal Jelly 0.025-0.01 % gel 1 ea vaginal PRN Qty: 113.4 2RF Rx Instructions: on days she does not take Premarin levothyroxine 100 mcg tablet 100 mcg PO DAILY Qty: 90 3RF trazodone 50 mg tablet 25 mg PO DAILY Qty: 15 2RF candesartan 32 mg tablet 32 mg PO DAILY Qty: 30 2RF aspirin 81 mg capsule 81 mg PO DAILY polyethylene glycol 3350 [Miralax] 17 gram/dose powder 17 g PO DAILY multivitamin [Daily Multi-Vitamin] Tablet 1 tab PO DAILY cranberry extract [Cranberry Concentrate] 500 mg capsule 500 mg PO BID Rx Instructions: administer with meals calcium carb and citrate-vitD3 [Citracal-D3 Slow Release] 600 mg-12.5 mcg (500 unit) tablet extended release 2 tab PO DAILY green tea extract 500 mg capsule 750 mg PO QID magnesium 200 mg tablet 200 mg PO DAILY ondansetron 4 mg tablet,disintegrating 4 mg PO Q8H PRN (Reason: nausea and vomiting) Qty: 30 2RF neomycin-polymyxin B-dexameth 3.5mg/mL-10,000 unit/mL-0.1 % drops,suspension 1 drp O[facility] .TAPER DIRECTED Rx Instructions: Filled 02/01/2023 Discontinued esomeprazole magnesium 40 mg capsule,delayed release(DR/EC) 40 mg PO DAILY Qty: 90 1RF Discharge Orders: Discharge Order (Routine); Ordered 03/26/23 Ordered By: Guerda Barton Admission Data Admit Date/Time: 03/24/23 00:03 Attending Provider: Gertrude Grace Admit Provider: Sheng Etienne Primary Care Provider: Med Hyatt Other Providers: Sheng Etienne ; Richmond Elaine Other Interventions: Discharge Summary Assessment (RN) Last Done: 03/26/23 15:23 Supervising Physician Co-Signing Physician Notes I supervised the medical student, Tapan Puckett, in the history and physical examination of this patient and agree with the documentation as provided above. Any additional recommendations/comments will be outlined here:Patient presented for evaluation of acute left sided back pain, evaluation thus far has been reassuring. Patient has longstanding history of GERD, managed with Nexium. She has been managed inpatient with Pepcid/Pantoprazole and has continued to experience symptom resolution. Physical exam with evidence of L T5-6 Enrique point 03/25, which remained resolved after treatment 03/26, heart RRR, and lungs CTAB. Suspect acute muscle spasm/Enrique's point (T5-6) in the setting of worsening GERD/reflux symptoms, symptoms now controlled with antihistamine/PPI regimen. Patient received trial of OMT with notable improvement. Patient's elevated troponin levels evaluated by Cardiology, who noted evidence of microva scular ischemia, and recommended optimization of hypertension (with addition of HCTZ) as well as Rx for Nitroglycerin PRN. Troponin level downtrending prior to discharge. ~Guerda Barton DO Attending Physicain Medical Student Supervision Note: I independently interviewed and examined the patient and verified the jean history and physical, reviewed labs and image studies, discussed the case with the medical student Jane Puckett and the Resident physician Guerda Barton and agree with the findings and care plan. Resident Activity Tracking Resident Involvement: Resident Care Provided Care Provided: Adult Hospital Medicine
[2023-03-26 10:31] LABS: Basophils # (auto) 0.06 K/uL (0-0.2); Basophils % (auto) 0.4 %; Echinocytes 2+; Eosinophils # (auto) 0.22 K/uL (0-0.50); Eosinophils % (auto) 1.5 %; Immature Granulocytes # (auto) 0.04 K/uL (0.01-0.20); Immature Granulocytes % (auto) 0.3 %; Lymphocytes # (auto) 10.72 K/uL (1.2-3.4); Lymphocytes % (auto) 71.2 %; Monocytes # (auto) 0.69 K/uL (0.11-0.59); Monocytes % (auto) 4.6 %; Neutrophils # (auto) 3.32 K/uL (1.40-6.50); Smudge Cells Present
--- NOTE | 2023-03-26 13:23 | Cardiology Progress Note ---
Date of Service March 26, 2023 Assessment & Plan (1) Elevated troponin: Plan: [place] most consistent with demand ischemia. Dobutamine stress echocardiogram negative for macrovascular myocardial ischemia yesterday. As noted, she did have brief epigastric discomfort with ECG changes at peak heart rate/BP, this may be an anginal equivalent due to microvascular disease in the context of hemodynamic duress. As such, agree with addition of hydrochlorothiazide to ARB for better BP control. Also, prescription for nitroglycerin PRN to be used for any recurrent chest discomfort (this will both improve coronary flow and decrease blood pressure if she is acutely hypertensive). In the absence of any lifestyle limiting anginal type symptoms, would continue with medical management including aspirin and statin, with consideration of beta-fidel if she does develop exertional symptoms in the future. Etiology of her nausea and back pain remains uncertain, neither of these was reproduced at high rate pressure product/workload during pharmacologic stress. Therefore, these are felt to be noncardiac symptoms. (2) Nausea: Plan: As above. (3) Back pain: Plan: Her left-sided back pain is clearly noncardiac given its spasmodic/transient nature. (4) CLL (chronic lymphocytic leukemia): Admission and Anticipated Discharge Date Admission Date: March 24, 2023 Subjective No problems overnight. No further nausea. No back pain. Denies any current symptoms. Noted brisk diuresis after hydrochlorothiazide 12.5 mg given. BP normotensive overnight. Telemetry showed sinus rhythm in the 50-70 bpm range. Physical Exam Physical Exam: No distress. BP normotensive. 132/57 mmHg. Pulse 62 bpm and regular. Skin: no ecchymoses or generalized lesions. HEENT: unremarkable. Neck: JVP at the clavicle at 90 degrees, no carotid bruits. Lungs: clear. Cardiac: regular rhythm, normal S1-2, no murmur. Abdomen: Nontender. Extremities: no edema, pulses intact. Neurologic: normal affect and conversation, nonfocal. Results & Data Vital Signs (Past 12 Hours) Vital Signs Temp Pulse Resp BP Pulse Ox O2 Del Method 03/26/23 07:32 98.4 F 65 18 124/78 99 Room Air 03/26/23 02:51 98.1 F 76 18 112/59 L 94 Room Air Laboratory Results Normal electrolytes, BUN 13, creatinine 0.84. PG Care Time/CCT Total # of Minutes Spent Total Time Spent with Patient: Total time spent is greater than 50% in coordination of care (as documented) at patient's floor/unit and/or counseling patient: Coding Level of Care Code 65202 SUB INP/OBS CARE 350MIN Diagnoses Elevated troponin R77.8 Nausea R11.0 Back pain M54.9 CLL (chronic lymphocytic leukemia) C91.10
== END 2023-03-26 17:06 | disposition home or self-care (01) | DRG 552 ==
LOC: ED 20:40 → 2W 03-24 00:03 → SUATTDRO 03-24 00:03 → 2W 03-24 00:29

== ENCOUNTER 2023-09-30 10:37 | Observation (INO) ==
--- NOTE | 2023-09-24 10:02 | Anesthesiology Consultation ---
Date of Service September 24, 2023 Assessment & Plan Chart Review Chart Review: Acceptable Risk for Surgery and Patient NOT seen in Pre Admission Testing Consults Requested none Per cardiology, no cardiac symptoms and BP well controlled. New antihypertensive medication started in August. OK to proceed. History Surgery Operation Date: 09/30/23 12:15 Proposed Procedures p Laparoscopic Cholecystectomy, Biopsy Right Liver Mass - Umang Albarado, DO Height/Weight Height: 5 ft 7 in Weight: 70.307 kg Allergies Allergy/AdvReac Type Severity Reaction Status Date / Time amlodipine AdvReac Intermediate swollen Verified 09/23/23 11:46 ankles doxepin AdvReac Intermediate Unknown Verified 09/23/23 11:46 nortriptyline AdvReac Intermediate Nausea and Verified 09/23/23 11:46 dizzy feeling Opioids-Methadone and Related AdvReac Intermediate Unknown Verified 09/23/23 11:46 duloxetine [From Cymbalta] AdvReac Mild Unknown Verified 09/23/23 11:46 pregabalin [From Lyrica] AdvReac Mild Nausea Verified 09/23/23 11:46 Medications Home Medications Medication Instructions Recorded Confirmed Last Taken cranberry extract 500 mg capsule 500 mg PO BID 09/13/20 09/23/23 Unknown (Cranberry Concentrate) multivitamin (Daily Multi-Vitamin 1 tab PO QAM 09/13/20 09/23/23 Unknown tablet) polyethylene glycol 3350 17 17 g PO QAM 09/13/20 09/23/23 Unknown gram/dose oral powder (Miralax) calcium carb,cit ER 600 mg-vit D3 2 tab PO QAM 03/26/21 09/23/23 Unknown 12.5 mcg (500 unit) tablet,ext.rel (Citracal-D3 Slow Release) aspirin 81 mg capsule 81 mg PO QAM 05/06/22 09/23/23 Unknown magnesium 200 mg tablet 200 mg PO QAM 02/04/23 09/23/23 Unknown famotidine 20 mg tablet 20 mg PO BID 30 days #180 tabs 04/08/23 09/23/23 Unknown alpha lipoic acid 600 mg capsule 600 mg PO DAILY #30 caps 04/15/23 09/23/23 Unknown azelastine 137 mcg (0.1 %) nasal 2 spray intranasal BID PRN allergy 04/27/23 09/23/23 Unknown spray aerosol symptoms #90 mL conjugated estrogens 0.625 mg/gram 0.625 mg vaginal .COMPLEX #30 grams 05/27/23 09/23/23 Unknown vaginal cream (Premarin) oxyquinoline 0.025 %-sodium lauryl See Rx Instructions vaginal PRN 05/27/23 09/23/23 Unknown sulfate 0.01 % vaginal gel #113.4 grams (Trimo-Espinal Jelly) diclofenac sodium 1 % topical gel 2 g topical QID PRN pain #100 grams 05/31/23 09/23/23 Unknown TRANSDERMAL COMPOUND CREAM 1 dose topical DIRECTED 07/12/23 09/23/23 Unknown mecobalamin (vitamin B12) 1,000 1,000 mcg sublingual DAILY #30 tabs 09/09/23 09/23/23 Unknown mcg disintegrating tablet,sublingual candesartan 32 mg tablet 32 mg PO .COMPLEX #90 tabs 09/14/23 09/23/23 Unknown gabapentin 100 mg capsule 200 mg (2 x 100 mg) PO HS 30 days 09/15/23 09/23/23 Unknown #60 caps cholecalciferol (vitamin D3) 25 25 mcg PO QAM 09/23/23 09/23/23 Unknown mcg (1,000 unit) capsule diltiazem HCl 300 mg 300 mg PO HS 09/23/23 09/23/23 Unknown capsule,extended release 24 hr levothyroxine 100 mcg tablet 100 mcg PO QAM 09/23/23 09/23/23 Unknown nitroglycerin 0.4 mg sublingual 0.4 mg sublingual UD PRN Chest Pain 09/23/23 09/23/23 Unknown tablet pantoprazole 40 mg tablet,delayed 40 mg PO QAM 09/23/23 09/23/23 Unknown release rosuvastatin 5 mg tablet (Crestor) 5 mg PO QDL 09/23/23 09/23/23 Unknown Past Medical History Medical History (Updated 09/23/23 @ 12:19 by Rocio Mancuso RN) Female bladder prolapse pessary Nausea and vomiting after administration of anesthetic agent Cardiac syndrome X follows with [facility] Maneul Macular degeneration pt denies, Dr Houser assessed and said does not have GERD (gastroesophageal reflux disease) Idiopathic neuropathy Meningioma follows with [facility] neuro yearly, no changes, no seizures/strokes, or memory issues Chronic cerebral ischemia follows with Dr. Vikram Mares esophagus Hypertension Hyperlipidemia Back pain Thyroid nodule US 10/2021, 11/2022 Repeat 1 yr old Lateral meniscus tear Fracture of lateral condyle of femur (10/24/22) right > no surgery, healed on own B12 deficiency resolved per pt History of basal cell carcinoma (BCC) removed Hypothyroid CLL (chronic lymphocytic leukemia) (~2009) Followed by [facility], dx over 14 yrs ago, no current issues Schwannoma resolved > benign Benign thyroid cyst Benign breast cyst in female resolved Branchial cleft cyst resolved age 12 Past Family History Family History Mother Bipolar disorder Father Hypertension Alcohol abuse Sister Hypertension Melanoma Grandfather (Paternal) Lung cancer Other Dementia Myocardial infarction Denies family history of Ovarian cancer Prostate cancer Diabetes Alzheimer disease Breast cancer Colorectal cancer Stroke Past Surgical History Surgical History (Updated 09/23/23 @ 12:11 by Rocio Mancuso RN) History of colonoscopy History of esophagogastroduodenoscopy (EGD) H/O breast biopsy 1990 exc benign cyst History of partial thyroidectomy excision thyroid nodule 1989 H/O cataract removal with insertion of prosthetic lens bilat S/P spinal surgery 2014 schwannoma tumor excision H/O colonoscopy No further tests recommended History of right hip replacement H/O parathyroidectomy H/O abdominal hysterectomy Social History Smoking Status: Never smoker Do You Dip or Chew Tobacco: No Hx Alcohol Use: No Hx Substance Use: No substance use type: does not use Testing Laboratory Results Laboratory Tests 09/20/23 09:36 WBC 13.77 H Hgb 14.1 Hct 44.0 Plt Count 266 Sodium 139 Potassium 4.0 Chloride 101 Carbon Dioxide 30 BUN 19 Creatinine 0.86 Glucose 90 Electrocardiogram Date: 03/23/23 Findings: + NSR @ and + NSST changes Echocardiogram Date: 03/24/23 EF: 55-60 LV Function: normal Other Findings: + diastolic dysfunction (grade 1) Valvular Disease: + no significant valvular disease Other Testing per neurosurgery, patient has stable sized meningioma and monitoring with q6 month MRI brain.
[~2023-09-30 10:37] MED LIST: DEXAMETHASONE SOD INJ 4 MG/ML VIAL ONE; LIDOCAINE 2% 2 ML VIAL/AMP(20MG/ML) INFIL ONE; ONDANSETRON INJ 2 MG/ML 2 ML VIAL ONE; PROPOFOL IV EMULSION 10 MG/ML 20 ML VIAL IV ONE; ROCURONIUM BROMIDE 10 MG/ML 5 ML VIAL IV ONE
[2023-09-30] MEDS: LACTATED RINGER'S 1,000 ML IV SCH (11:29)
[2023-09-30] MEDS ORDERED: ePHEDrine sulfate 50 MG/ML AMP IV PRN (12:05)
[2023-09-30] MEDS ORDERED: ATROPINE SULFATE 0.1 MG/ML 10ML SYR IV PRN (12:05)
--- NOTE | 2023-09-30 12:35 | History & Physical Bridge Note ---
Date of Service September 30, 2023 History & Physical Bridge Note I have examined the patient, reviewed the History & Physical and in the interval since the performance of the History & Physical I have noted the following changes of clinical significance: no changes noted
[2023-09-30] MEDS ORDERED: fentaNYL citrate PF 100 MCG/2 ML VIAL ONE (13:01)
[2023-09-30] MEDS: ceFAZolin 2000MG 2,000 MG/15 ML SYR IV SCH (13:08)
[2023-09-30] MEDS ORDERED: SUGAMMADEX SODIUM 200 MG/2 ML VIAL IV ONE (13:47)
[2023-09-30] MEDS: BUPIVACAINE/EPINEPHRINE 0.5% MPF 1:200,000 30 ML VIAL ONE (14:01)
[2023-09-30] MEDS ORDERED: ONDANSETRON INJ 2 MG/ML 2 ML VIAL IV PRN (14:06)
[2023-09-30] MEDS ORDERED: traMADol HCL 50 MG TABLET PO PRN (14:06)
--- NOTE | 2023-09-30 14:14 | Operative Report ---
PG Post Operative Report Pre & Post Diagnosis Operation Date: 09/30/23 12:15 Pre-Op Diagnosis: Gallbladder Polyp, Right Liver Mass Post-Op Diagnosis: Gallbladder Polyp, Right Liver Mass, Hiatal Hernia I identified the patient and participated in the time-out.: Yes Procedure Operation Date: 09/30/23 12:15 Actual Procedures p Laparoscopic Cholecystectomy, Biopsy Right lobe Liver cyst, Aspiration liver cyst(Not Applicable) - Umang Albarado DO Surgeon Umang Albarado DO [employer] Process Worker idalia drake Estimated Blood Loss 10 Findings Consistent with Post-Op Diagnosis Specimens 1. gallbladder 2. liver cyst aspiration fluid 3. portion of wall of liver cyst Description of Procedure After informed consent was obtained the patient was taken to the operating room and placed in the supine position. After successful intubation the abdomen was sterilely prepped and draped in usual fashion. A periumbilical incision was made with an 11 blade scalpel and carried down through the soft tissue using electrocautery. The anterior rectus fascia was opened using electrocautery and 2 #0 Vicryl stay sutures were placed. The peritoneum was elevated with hemostats and incised under direct vision using Metzenbaum scissors. A finger sweep was performed and a 12 mm Du trocar was placed. The abdomen was insufflated to 18 mmHg. The laparoscope was inserted and the abdomen was examined in 360. There was a moderate sized hiatal hernia. There was also an approx 4 cm liver cyst just medial to the gallbladder. A subxiphoid 5 mm port and 2 right upper quadrant 5 mm ports were placed under direct vision. The patient was placed in a reverse Trendelenburg position and slightly airplaned to the left. The gallbladder was grasped and elevated superiorly and laterally. A [place] dissector was used to take down adhesions around the neck of the gallbladder. The cystic duct was identified and skeletonized. It was clipped twice proximally and once distally and transected using a laparoscopic scissor. In similar fashion the cystic artery was identified and skeletonized clipped and divided. The gallbladder was removed from the gallbladder fossa with electrocautery. It was placed into an Endo Catch bag. Thorough irrigation was performed. At the end of the procedure there was adequate hemostasis and no evidence of any bile leaks. Next, I aspirated the cyst and sent the fluid for cytology. I also "de-roofed" the cyst and sent a portion of the cyst wall to pathology as well. A final look around the abdomen showed no other abnormalities. The gallbladder and trochars were all removed and the abdomen was desufflated. The fascia of the camera port was closed using 0 Vicryl in a [id number] fashion. All the wounds were irrigated and closed using 4-0 Monocryl. Marcaine was injected around them for postoperative analgesia and skin glue used as a dressing. The patient was awakened, extubated and transferred to recovery in stable condition. My CNA INSTRUCTOR cleaner assistant was present throughout the entire case... helped with prepping the patient. With exposure for trocar placement, as well as retracted the gallbladder throughout the case and also assisted with wound closure and dressing placement. I attest to the content of the Intraoperative Record and any orders documented therein. Any exceptions are noted below.
[2023-09-30] MEDS: fentaNYL citrate PF 100 MCG/2 ML VIAL IV PRN (14:16)
--- NOTE | 2023-09-30 15:15 | Anesthesiology Progress Note ---
Date of Service September 30, 2023 Anesthesia Post Procedure Vital Signs Vital Signs: Temp Pulse Resp BP Pulse Ox O2 Del Method O2 Flow Rate 09/30/23 15:05 83 14 157/62 H 95 Oxymask 4 09/30/23 14:55 84 14 153/70 H 98 Oxymask 4 09/30/23 14:45 85 17 165/73 H 93 Room Air 0 09/30/23 14:35 86 15 162/63 H 95 Oxymask 4 09/30/23 14:25 82 18 168/66 H 97 Oxymask 4 09/30/23 14:15 97.2 F L 98 H 24 178/68 H 99 Oxymask 8 09/30/23 10:52 98.6 F 78 20 147/73 H 97 Room Air Pain Intensity Abdomen: Pain Intensity: 8 Transfer of Care Handoff Completed per policy Notes Mental Status: alert / awake / arousable and participated in evaluation Patient Amnestic to Procedure: Yes Nausea / Vomiting: adequately controlled Pain: adequately controlled Airway Patency, RR, SpO2: stable & adequate BP & HR: stable & adequate Hydration State: stable & adequate Anesthetic Complications: no major complications apparent and Pt Satisfied with anesthetic care
[2023-09-30] MEDS: ONDANSETRON INJ 2 MG/ML 2 ML VIAL IV PRN (15:45)
[2023-09-30] MEDS: ACETAMINOPHEN 1,000 MG/100 ML VIAL IV ONE (16:09)
[2023-09-30] MEDS ORDERED: [UNRECOGNIZED DRUG - OTHER] TOP SCH (19:44)
[2023-09-30] MEDS ORDERED: HYDROmorphone INJ 0.5 MG/0.5 ML SYR IV PRN ×2 (19:44)
[2023-09-30] MEDS ORDERED: GABAPENTIN 100 MG CAP PO SCH (19:44)
[2023-09-30] MEDS ORDERED: NITROGLYCERIN SL 0.4 MG/TAB TAB SL PRN (19:44)
[2023-09-30] MEDS: SODIUM CHLORIDE 0.9% 1,000 ML IV SCH (19:47)
[2023-09-30] MEDS: [UNRECOGNIZED DRUG - MIXTURE] PV SCH (20:15)
[2023-09-30] MEDS: GABAPENTIN 100 MG CAP PO SCH (21:06)
[2023-09-30] MEDS: FAMOTIDINE 20 MG TAB PO SCH (21:06)
[2023-09-30] MEDS: dilTIAZem HCL 300 MG CAPCR PO SCH (21:06)
[2023-09-30] MEDS: ACETAMINOPHEN 325 MG TAB PO PRN (23:27)
[2023-10-01] MEDS: LEVOTHYROXINE SODIUM 100 MCG TABLET PO SCH (05:38)
[2023-10-01] MEDS: PANTOprazole 40 MG TAB PO SCH (07:11)
[2023-10-01] MEDS: POLYETHYLENE (MIRALAX) 17 GM PACK PO SCH (08:53)
[2023-10-01] MEDS: CALCIUM 600MG + VIT D 400 IU TAB PO SCH (08:54)
[2023-10-01] MEDS: MAGNESIUM OXIDE 400 MG TAB PO SCH (08:54)
[2023-10-01] MEDS: ENALAPRIL MALEATE 10 MG TAB PO SCH (08:56)
[2023-10-01] MEDS: GABAPENTIN 100 MG CAP PO SCH (08:57)
[2023-10-01] MEDS: MULTIVITAMIN TAB PO SCH (08:57)
[2023-10-01] MEDS: ASPIRIN 81 MG ECTAB PO SCH (08:58)
--- NOTE | 2023-10-01 09:19 | Surgery Progress Note ---
Date of Service October 01, 2023 Assessment & Plan (1) Hx laparoscopic cholecystectomy: Plan: POD 1 Lap ye with Liver biopsy Patient tolerating reg diet no n/v Lap sites covered with dermabond mild ecchymosis at umbilical area, no s/s of infection noted, no drainage Abdomen mildly distended, soft VSS Patient states she feels ready to go home Will place d/c order, pt to f/u with Dr. Albarado in 2 weeks Admission and Anticipated Discharge Date Admission Date: September 30, 2023 Subjective Denies cp, sob, n/v mild abdomen discomfort feeling bloated from gas tolerating reg diet Review of Systems Constitutional: no fever and no chills Ear, Nose, Mouth, Throat: no hearing loss Respiratory: no cough and no dyspnea Cardiovascular: no chest pain Gastrointestinal: + abdominal pain (discomfort ) and + blo ating; no nausea and no vomiting Genitourinary: no dysuria Musculoskeletal: no muscle weakness Neurologic: no confusion Physical Exam Physical Exam: alert oriented, pleasant Constitutional: well developed, cooperative and comfortable; no acute distress ENMT: external ear and nose normal, oropharynx normal Neck: trachea midline, no thyromegaly Respiratory: normal respiratory effort and able to speak in complete sentences; no respiratory distress Cardiovascular: Rate/Rhythm: regular rate Gastrointestinal (Abdomen): Inspection/Auscultation: + abdomen distended (mild) and + abdominal surgical incision (CDI dermabond) Percussion/Palpation: + abdomen tender and abdomen soft; no guarding Musculoskeletal: no cyanosis or clubbing, extremities motor strength 5/5 Skin: no rashes, warm and dry Psychiatric: A+Ox3, euthymic affect Results & Data Vital Signs (Past 12 Hours) Vital Signs Temp Pulse Resp BP BP Pulse Ox O2 Del Method 10/01/23 07:44 98.2 F 12 118/52 L 95 Room Air 10/01/23 06:59 98.1 F 74 18 130/65 93 Room Air 10/01/23 03:31 99.0 F 73 16 114/64 95 Room Air 09/30/23 23:23 98.4 F 83 16 133/73 94 Room Air PG Care Time/CCT Total # of Minutes Spent Total Time Spent with Patient: Total time spent is greater than 50% in coordination of care (as documented) at patient's floor/unit and/or counseling patient: Coding Level of Care Code 06828 Post Operative Follow-Up Diagnoses Hx laparoscopic cholecystectomy Z90.49
--- NOTE | 2023-10-01 09:56 | Discharge Summary ---
Date of Service October 01, 2023 Principal Diagnosis Gallbladder Polyp Discharge Exam alert oriented, pleasant Constitutional well developed, cooperative and comfortable; no acute distress ENMT external ear and nose normal, oropharynx normal Neck trachea midline, no thyromegaly Respiratory normal respiratory effort and able to speak in complete sentences; no respiratory distress Cardiovascular Rate/Rhythm: regular rate Gastrointestinal (Abdomen) Inspection/Auscultation: + abdomen distended (mild) and + abdominal surgical incision (CDI dermabond) Percussion/Palpation: + abdomen tender and abdomen soft; no guarding Musculoskeletal no cyanosis or clubbing, extremities motor strength 5/5 Skin no rashes, warm and dry Psychiatric A+Ox3, euthymic affect Discharge Data Allergies Allergy/AdvReac Type Severity Reaction Status Date / Time amlodipine AdvReac Intermediate swollen Verified 09/30/23 11:20 ankles doxepin AdvReac Intermediate brain fog Verified 09/30/23 11:20 and nausea nortriptyline AdvReac Intermediate Nausea and Verified 09/30/23 11:20 dizzy feeling Opioids-Methadone and Related AdvReac Intermediate Nausea Verified 09/30/23 11:20 duloxetine [From Cymbalta] AdvReac Mild Nausea Verified 09/30/23 11:20 pregabalin [From Lyrica] AdvReac Mild Nausea Verified 09/30/23 11:20 Procedures Performed Operation Date: 09/30/23 12:15 Actual Procedures p Laparoscopic Cholecystectomy(Not Applicable) - Umang Albarado DO s Biopsy Right lobe Liver cyst, Aspiration liver cyst(Not Applicable) - Umang Albarado, Hospital Course (1) Hx laparoscopic cholecystectomy: Patient underwent an elective Laparoscopic cholecystectomy and Biopsy Right lobe Liver cyst, Aspiration liver cyst on 09/30/[address] Albarado. The patient was admitted over night for observation and care. Her diet was advanced to regular, and she was tolerating well without nausea or vomiting. Her vital signs remained wnl throughout her stay. Her pain was controlled with PO medication. Her post operative Lap sites covered with dermabond mild ecchymosis at umbilical area, no s/s of infection noted, no drainage, her abdomen is mildly distended, soft and reports feeling some bloating. She is ambulating without difficulty. Patient states she feels ready to go home and verbalized return precautions and follow up instructions. Patient d/c on 10/01/23 and remained stable throughout her entire stay. Total Time Total Time Spent Total Time Spent (In Minutes): 30 Discharge Plan Discharge Items Patient Disposition: Home - Self-Care Reason For Visit: S/P LAP GIOVANNI Discharge Diagnosis: laparoscopic cholecystectomy liver biopsy Activity: Per Instructions section Lifting: No more than 10 pounds Bathing Comment: may shower starting 10/01/23; no soaking in tubs/pools x 2 weeks Exercise/Sports: Wait until after follow-up appointment Non-emergency contact: Surgeon Call non-emergency contact if: you have any medication questions, your symptoms worsen, your pain is not controlled, you have a fever, your temperature is above 101.5, your wound has increased redness and your wound has increased drainage Follow-up/Referrals: Umang Albarado DO [Surgeon] - 10/18/23 2:00 pm (please call to schedule follow up in clinic within 2 weeks) Med Hyatt DO [Primary Care Provider] - 10/19/23 11:30 am Diet: Regular Addtl Attending Provider Instructions: You have skin glue over your incisions called dermabond. you may shower with this on. It will tend to dissolve and fall off within a couple weeks. Do not pick at the skin glue You may purchase Tylenol and/or Ibuprofen over the counter if needed for additional pain control over the next few days. Take per manufacturers instructions. Do Not take more than 3 grams of Tylenol in 24 hours. Pending Studies at Discharge: Yes Studies:: surgical pathology Stand-Alone Forms: Anesthesia/Sedation, Adult, [facility] Medications and DC Order Prescriptions: New tramadol 50 mg tablet 50 mg PO Q6H MDD 4 tabs in 24 hours PRN (Reason: pain) Qty: 14 0RF Rx Instructions: take one tablet every 6 hours as needed for pain. Continued famotidine 20 mg tablet 20 mg PO BID 30 Days Qty: 180 3RF azelastine 137 mcg (0.1 %) aerosol,spray 2 spray intranasal BID PRN (Reason: allergy symptoms) Qty: 90 3RF Rx Instructions: administer into each nostril Premarin 0.625 mg/gram cream 0.625 mg vaginal .COMPLEX Qty: 30 3RF Rx Instructions: Apply pea sized amount 1-2 times weekly. Trimo-Espinal Jelly 0.025-0.01 % gel See Rx Instructions vaginal PRN Qty: 113.4 2RF Rx Instructions: 1 applicator three times weekly vaginally as needed; on days she does not take Premarin diclofenac sodium 1 % gel 2 g topical QID PRN (Reason: pain) Qty: 100 3RF TRANSDERMAL COMPOUND CREAM 1 dose topical DIRECTED Rx Instructions: MELOXICAM 0.5%, GABAPENTIN, LIDOCAINE 2%, PRILOCAINE gabapentin 100 mg capsule 100 mg PO .COMPLEX 30 Days Qty: 30 5RF Rx Instructions: 100 mg orally in the AM, 100mg at Noon, and 200mg QHS; ramipril 5 mg capsule 5 mg PO DAILY Qty: 90 3RF mecobalamin (vitamin B12) 1,000 mcg tablet,chewable 1,000 mcg PO .Every other day Qty: 45 5RF alpha lipoic acid 600 mg capsule 600 mg PO DAILY Qty: 30 0RF aspirin 81 mg capsule 81 mg PO QAM polyethylene glycol 3350 [Miralax] 17 gram/dose powder 17 g PO QAM multivitamin [Daily Multi-Vitamin] Tablet 1 tab PO QAM cranberry extract [Cranberry Concentrate] 500 mg capsule 500 mg PO BID Rx Instructions: administer with meals calcium carb and citrate-vitD3 [Citracal-D3 Slow Release] 600 mg-12.5 mcg (500 unit) tablet extended release 2 tab PO QAM magnesium 200 mg tablet 200 mg PO QAM nitroglycerin 0.4 mg Tablet, Sublingual 0.4 mg sublingual UD PRN (Reason: Chest Pain) levothyroxine 100 mcg tablet 100 mcg PO QAM diltiazem HCl 300 mg capsule,extended release 24hr 300 mg PO HS pantoprazole 40 mg tablet,delayed release (DR/EC) 40 mg PO QAM cholecalciferol (vitamin D3) 25 mcg (1,000 unit) capsule 25 mcg PO QAM rosuvastatin [Crestor] 5 mg tablet 5 mg PO QDL Discharge Orders: Discharge Order (Routine); Ordered 10/01/23 Ordered By: Sandra Frias/Other Patient Handouts: Preventing Deep Vein Thrombosis Admission Data Admit Date/Time: 09/30/23 17:03 Attending Provider: Umang Albarado Admit Provider: Umang Albarado Primary Care Provider: Med Hyatt Coding Level of Care Code 36204 IN/OBS DISCH 30 MIN/LESS Diagnoses Hx laparoscopic cholecystectomy Z90.49
[2023-10-01] MEDS ORDERED: ROSUVASTATIN CALCIUM 5 MG TAB PO SCH (11:30)
[2023-10-02] MEDS ORDERED: CYANOCOBALAMIN (B-12) 500 MCG TABLET PO SCH (09:00)
== END 2023-10-01 10:57 | disposition home or self-care (01) ==
LOC: ASU 10:37 → 3W 10:37